=== PATIENT | female | born 1980 | race Hispanic/Latino ===

== ENCOUNTER 2018-04-05 11:20 | Inpatient (IN) | payer SELFPAY ==
[2018-04-05] MEDS ORDERED: Sodium Chloride 0.9% 1,000 ML IV ONE (12:08)
[2018-04-05 13:14] LABS: BASO % 0.4 % (0.0-2.0); LYMPH # 0.8 K/uL (1.0-4.3); LYMPH % 7.1 % (20.0-40.0); MEAN CELL VOLUME 80.6 fL (81.0-99.0); MEAN CORPUSCULAR HEMOGLOBIN 26.5 pg (27.0-31.0); MEAN CORPUSCULAR HGB CONC 32.9 g/dL (33.0-37.0); MEAN PLATELET VOLUME 9.1 fL (7.2-11.7); MONO # 0.8 K/uL (0.0-0.8); MONO % 7.2 % (0.0-10.0); NEUT % 85.3 % (50.0-75.0); NRBC % 0.1 % (0.0-2.0); PLATELET COUNT 221 K/uL (130-400); RBC 4.89 Mil/uL (3.80-5.20); RED CELL DISTRIBUTION WIDTH 18.5 % (11.5-14.5); WHITE BLOOD COUNT 11.7 K/uL (4.8-10.8)
[2018-04-05 13:20] LABS: HCG,QUALITATIVE URINE NEGATIVE (NEGATIVE)
[2018-04-05 13:23] LABS: SQUAMOUS EPITHIAL 12 /hpf (0-5); URINE BILIRUBIN NEGATIVE (NEGATIVE); URINE BLOOD NEGATIVE (NEGATIVE); URINE CALCIUM OXALATE CRYSTALS OCC /hpf (<OCC); URINE CLARITY Hazy (Clear); URINE COLOR Yellow (YELLOW); URINE GLUCOSE (UA) NORMAL (Normal); URINE HYALINE CAST 0-2 /lpf (0-2); URINE LEUKOCYTE ESTERASE NEG Leu/uL (Negative); URINE PROTEIN NEGATIVE (NEGATIVE); URINE UROBILINOGEN NORMAL mg/dL (0.2-1.0)
[2018-04-05 13:28] LABS: BLOOD UREA NITROGEN 19 mg/dL (7-17); CALCIUM 9.3 mg/dl (8.6-10.4); GFR AFRICAN-AMERICAN > 60; GFR NON-AFRICAN AMERICAN > 60
[2018-04-05 13:38] LABS: BANDS 2 % (0-2); LYMPHOCYTE 5 % (20-40); MONOCYTE 4 % (0-10); NEUTROPHIL 88 % (50-75); PLATELET ESTIMATE NORMAL (NORMAL); REACTIVE LYMPHOCYTES 1 % (0-0); TOTAL CELLS COUNTED 100
[2018-04-05 13:39] LABS: ANISOCYTOSIS SLIGHT
--- NOTE | 2018-04-05 13:58 | RAD ---
PROCEDURE: Right Hip Radiographs. HISTORY: pain COMPARISON: None. FINDINGS: BONES: No acute fracture. JOINTS: Normal. SOFT TISSUES: Normal. OTHER FINDINGS: Nonspecific metallic densities seen overlying the pelvis. IMPRESSION: No demonstrated fracture or dislocation. Nonspecific metallic densities seen overlying the pelvis may be external to the patient. Correlate clinically.
--- NOTE | 2018-04-05 13:59 | RAD ---
PROCEDURE: Left Knee Radiographs. HISTORY: Pain. COMPARISON: None. FINDINGS: BONES: No acute fracture. JOINTS: Unremarkable. JOINT EFFUSION: Large joint effusion. OTHER FINDINGS: None. IMPRESSION: Large suprapatellar joint effusion without demonstrated fracture or dislocation.
[2018-04-05] MEDS ORDERED: Lidocaine 2% Inj (20ml) INFIL ONE (14:43)
[2018-04-05] MEDS ORDERED: Lidocaine 2% MPF (5 ml) Inj ONE ×2 (14:53→15:44)
--- NOTE | 2018-04-05 16:00 | C.PDOC ---
History Of Present Illness <Mallory Andrade - Last Filed: 04/05/18 16:09> <Geraldine Mayers - Last Filed: 04/06/18 17:38> 37 yo female w/o significant PMHx come in for evaluation of gradual onset of Right lower back pain radiating down to Right leg associated with tingling sensation for past 3 days. Pt sts, since yesterday developed Left knee pain, swelling, unable to ambulate due to Left knee pain, (+) fever last night 101C. Otherwise, pt denies known trauma or injury, travel or insect bite, rash, headache, dizziness, myalgia, sore throat, cough, CP, SOB, dyspnea, wheezing, abd. pain, N/V, UTi sx, hematuria, saddle anesthesia, incontinence, denies weakness to B/ lEs. Ambulate to ED, appears in pain. (Geraldine Mayers) <Mallory Andrade - Last Filed: 04/05/18 16:09> History Per: Patient <Geraldine Mayers - Last Filed: 04/06/18 17:38> Time Seen by Provider: 04/05/18 11:44 Chief Complaint (Nursing): Lower Extremity Problem/Injury Past Medical History - Social History Hx Alcohol Use: No Hx Substance Use: No <Mallory Andrade - Last Filed: 04/05/18 16:09> Reviewed: Historical Data, Nursing Documentation, Vital Signs - Medical History PMH: No Chronic Diseases Surgical History: No Surg Hx Family History: States: No Known Family Hx - Social History Hx Tobacco Use: No - Immunization History Hx Tetanus Toxoid Vaccination: No Hx Influenza Vaccination: No Hx Pneumococcal Vaccination: No <Geraldine Mayers - Last Filed: 04/06/18 17:38> Vital Signs: Last Vital Signs Temp 97.6 F 04/06/18 15:45 Pulse 63 04/06/18 15:45 Resp 13 04/06/18 15:45 BP 111/69 04/06/18 15:45 Pulse Ox 100 04/06/18 15:45 Review Of Systems Except As Marked, All Systems Reviewed And Found Negative. Constitutional: Positive for: Fever, Chills. Negative for: Malaise ENT: Negative for: Throat Pain Cardiovascular: Negative for: Chest Pain, Palpitations, Edema, Light Headedness Respiratory: Negative for: Cough, Shortness of Breath, Wheezing Gastrointestinal: Negative for: Nausea, Vomiting, Abdominal Pain, Diarrhea Genitourinary: Negative for: Dysuria, Incontinence Musculoskeletal: Positive for: Back Pain, Other (Left knee pain, swelling). Negative for: Neck Pain Neurological: Negative for: Weakness, Altered Mental Status, Headache, Dizziness <Geraldine Mayers - Last Filed: 04/06/18 17:38> Physical Exam - Physical Exam Appears: Well, Non-toxic, No Acute Distress Skin: Normal Color, Warm, Dry, No Pale, No Rash Head: Normacephalic Eye(s): bilateral: PERRL Nose: No Flaring, No Discharge Oral Mucosa: Moist, No Drooling Throat: No Erythema, No Drooling Neck: Normal ROM, Trachea Midline, Supple Cardiovascular: Rhythm Regular Respiratory: No Decreased Breath Sounds, No Accessory Muscle Use, No Stridor, No Wheezing Gastrointestinal/Abdominal: Soft, No Tenderness, No Distention, No Guarding Back: No CVA Tenderness, No Vertebral Tenderness, No Muscle Spasm, Paraspinal Tenderness (Right sided lumbar) Extremity: Normal ROM (mod discomfort to FAROM to left knee due to pain), Tenderness (diffuse anterior aspect Left knee), No Calf Tenderness, Capillary Refill (less than 2sec to B/L LEs.), No Deformity, Swelling (Left knee lateral superior effusion) Neurological/Psych: Oriented x3, Normal Speech, Normal Motor, Normal Sensation, Normal Reflexes <Geraldine Mayers - Last Filed: 04/06/18 17:38> ED Course And Treatment - Laboratory Results Result Diagrams: 04/05/18 13:10 04/05/18 13:10 O2 Sat by Pulse Oximetry: 99 <Mallory Andrade - Last Filed: 04/05/18 16:09> - Laboratory Results Result Diagrams: 04/06/18 07:49 04/06/18 07:49 Urine POC: Negative Pulse Ox Interpretation: Normal - Other Rad pelvis w/Right hip X-Ray: Interpreted by Me, Viewed By Me Interpretation: (-) acute fx or dislocation, no osteo Left knee X-Ray: Interpreted by Me, Viewed By Me Interpretation: (+) small effusion, no acute fx or dislocation Progress Note: Pt was OBS in ED for 5 hour and remained significant unchanged. During the ED evaluation, pt was unable to ambulate due to Left knee. Blood work review, mild leukocytosis with left shift. Synovial fluid sent to lab after arthrocentesis of Left knee performed, (+) WBC, RBC. Suspicion for septic left knee. Case discussed with , [id number] and admission arranged to medicine. notified about admission. Pt remained stable during the Ed evaluation, afebrile, hemodynamicalys table. Zosyn given empirically. <Geraldine Mayers - Last Filed: 04/06/18 17:38> Disposition <Mallory Andrdae - Last Filed: 04/05/18 16:09> - Disposition Disposition Time: 16:43 <Geraldine Mayers - Last Filed: 04/06/18 17:38> - Disposition Disposition: HOSPITALIZED Condition: STABLE - Clinical Impression Clinical Impression: Septic arthritis Procedure: Fluid Aspiration - Time Performed Time Performed: 15:30 - Time Out Time Out: Side verified, Site verified, Patient ID confirmed, Sterile procedures obs. - Procedure Procedure: Arthrocentesis - Consent Obtained Consent obtained: Written - Performed By Performed by: Attending Physician - Indications Indication(s): Therapeutic, Diagnostic, Joint effusion, Suspected septic joint - Contraindications Contraindications: None - Location Location: Left, Knee (medial/superior aspect of patella) - Anesthetic Technique Anesthetic Technique: Topical Anesthetic: Lidocaine 1% (APPROX 10ML), Other (approx 5ml lidocaine also injected intraarticularly for pain relief.) Procedure: Usual prep and drape, Needle gauge (18) - Appearance Appearance: Purulent - Drained Drained ml: 20ML - Post-procedure Post-procedure: No fluid leak - Complications Complications: None - Patient tolerated procedure Patient tolerated procedure: Well <Mallory Andrade - Last Filed: 04/05/18 16:09>
[2018-04-05] MEDS ORDERED: Piperacillin/Tazobact 3.375 GM in Sodium Chloride 100 ML IVPB STA (17:30)
[2018-04-05 17:42] LABS: FLUID TYPE SYNOVIAL FLUID; SF GROSS APPEARANCE CLOUDY (CLEAR)
[2018-04-05] MEDS ORDERED: Piperacillin/Tazobact 3.375 gm 100 ML IVPB ONE (17:48)
[2018-04-05 18:37] LABS: LYME IGG NEGATIVE (NEGATIVE)
[2018-04-05 18:46] LABS: SYNOVIAL FLUID MONO/MACROPHAGE 8 % (0-0)
[2018-04-05 18:54] LABS: INR 1.1
[2018-04-05] MEDS ORDERED: Vancomycin 1 gm/NS 200 ml 1 GM/200 ML BAG IVPB ONE (19:00)
[2018-04-05 19:28] LABS: LYME IGM NEGATIVE (NEGATIVE)
--- NOTE | 2018-04-05 20:43 | CP.PCM.HP ---
<Yani Kendall - Last Filed: 04/05/18 21:54> History of Present Illness - History of Present Illness History of Present Illness: HPI: Patient is a 37 year Gabonese speaking female with no past medical history who presents to the ED with complaints of left knee pain and swelling. The patient says [place] the beach Tuesday and shortly after, started to right hip , thigh and knee numbness, as well as lower right back pain on Tuesday. The numbness improved and then she developed left knee pain and swelling. She took ibuprofen and used voltaren gel on her knee which improved her symptoms. She says that without ibuprofen and voltaren gel, she was not able to walk due to the swelling and pain. On Tuesday at 3am, the right hip and thigh numbness returned more intense than before, which is what brought her to the ER. She states she had fevers, weakness, dizziness, nausea, and lower right back pain on Tuesday; these symptoms have since resolved. She currently complains of left knee pain and swelling. The patient denies a history of trauma, STIs, and drug use. Patient currently denies chest pain, palpitations, shortness of breath, nausea, vomiting, fevers, dysuria, diarrhea/constipation, headaches, dizziness, numbness, and tingling. PMD: none PMHx: denies SurgHx: Breast augmentation 2017 FamHx: denies SocHx: denies tobacco and drug use; social red wine drinker; lives in [place]; recently moved here from [facility] Allergies: NKDA Medications: none Present on Admission - Present on Admission Any Indicators Present on Admission: No Review of Systems - Constitutional Constitutional: Fever, Weakness. absent: Headache - EENT Eyes: absent: Change in Vision Ears: Dizziness - Cardiovascular Cardiovascular: Leg Edema. absent: Chest Pain, Dyspnea, Palpitations, Rapid Heart Rate - Respiratory Respiratory: absent: Cough, Dyspnea - Gastrointestinal Gastrointestinal: Nausea. absent: Abdominal Pain, Constipation, Diarrhea, Vomiting - Genitourinary Genitourinary: absent: Change in Urinary Stream, Dysuria, Hematuria - Musculoskeletal Musculoskeletal: Arthralgias (left knee), Back Pain (Lower right back), Joint Swelling (left knee), Numbness (right hip and thigh) - Integumentary Integumentary: absent: Rash, Sores - Neurological Neurological: Abnormal Gait (painful gait due to swollen/painful left knee), Dizziness, Numbness (right hip and thigh), Headaches - Endocrine Endocrine: absent: Fatigue, Palpitations - Hematologic/Lymphatic Hematologic: absent: Easy Bleeding, Easy Bruising Past Patient History - Past Social History Smoking Status: Never Smoked - PSYCHIATRIC Hx Substance Use: No - SURGICAL HISTORY Hx Surgeries: Yes Other/Comment: BREAST AUGMENTATION Meds Allergies/Adverse Reactions: Allergies Allergy/AdvReac Type Severity Reaction Status Date / Time No Known Allergies Allergy Verified 04/05/18 11:36 Physical Exam - Constitutional Appears: No Acute Distress - Head Exam Head Exam: ATRAUMATIC, NORMAL INSPECTION, NORMOCEPHALIC - Eye Exam Eye Exam: EOMI, Normal appearance - ENT Exam ENT Exam: Mucous Membranes Moist - Respiratory Exam Respiratory Exam: Clear to Auscultation Bilateral, NORMAL BREATHING PATTERN. absent: Rales, Rhonchi, Wheezes, Respiratory Distress - Cardiovascular Exam Cardiovascular Exam: REGULAR RHYTHM, +S1, +S2 - GI/Abdominal Exam GI & Abdominal Exam: Normal Bowel Sounds, Soft. absent: Distended, Firm, Guarding, Tenderness - Extremities Exam Extremities exam: Positive for: joint swelling (left knee), pedal pulses present. Negative for: full ROM (decreased ROM of left knee due to swelling and pain; full ROM of right LE) Additional comments: LLE: non erythematous left knee, no lacerations/abrasions noted; + swelling noted, warm to touch (equal temperatures bilaterally), decreased ROM due to swelling/pain; Bandaid placed s/p joint aspiration - Back Exam Back exam: NORMAL INSPECTION. absent: rash noted, tenderness - Neurological Exam Neurological exam: Alert, CN II-XII Intact, Oriented x3 - Psychiatric Exam Psychiatric exam: Normal Affect, Normal Mood - Skin Skin Exam: Dry, Normal Color, Warm Additional comments: several blisters/abrasions noted on both feet due to shoes. Results - Vital Signs Recent Vital Signs: Last Vital Signs Temp 98.8 F 04/05/18 19:30 Pulse 60 04/05/18 19:30 Resp 20 04/05/18 19:30 BP 99/61 L 04/05/18 19:30 Pulse Ox 100 04/05/18 19:30 - Labs Result Diagrams: 04/05/18 13:10 07/04/18 13:10 Labs: Laboratory Results - last 24 hr 04/05/18 04/05/18 04/05/18 13:10 13:10 13:10 WBC 11.7 H RBC 4.89 Hgb 13.0 Hct 39.4 MCV 80.6 L MCH 26.5 L MCHC 32.9 L RDW 18.5 H Plt Count 221 MPV 9.1 Neut % (Auto) 85.3 H Lymph % (Auto) 7.1 L Robeson % (Auto) 7.2 Eos % (Auto) 0.0 Baso % (Auto) 0.4 Neut # (Auto) 10.0 H Lymph # (Auto) 0.8 L Robeson # (Auto) 0.8 Eos # (Auto) 0.0 Baso # (Auto) 0.0 Neutrophils % (Manual) 88 H Band Neutrophils % 2 Lymphocytes % (Manual) 5 L Reactive Lymphs % 1 H Monocytes % (Manual) 4 Platelet Estimate Normal Anisocytosis (manual) Slight ESR 33 H PT INR APTT Sodium 142 Potassium 3.5 L Chloride 100 Carbon Dioxide 30 Anion Gap 16 BUN 19 H Creatinine 1.0 Est GFR ( Amer) > 60 Est GFR (Non-Af Amer) > 60 Random Glucose 107 H Calcium 9.3 Urine Color Yellow Urine Clarity Hazy Urine pH 5.0 Ur Specific [place] 1.025 Urine Protein Negative Urine Glucose (UA) Normal Urine Ketones Negative Urine Blood Negative Urine Nitrate Negative Urine Bilirubin Negative Urine Urobilinogen Normal Ur Leukocyte Esterase Neg Urine WBC (Auto) 2 Urine RBC (Auto) < 1 Ur Squamous Epith Cells 12 H Calcium Oxalate Crystal Occ H Hyaline Casts 0-2 Urine HCG, Qual Negative Fluid Type Synovial WBC Synovial RBC Synovial Neutrophils Synovial Lymphocytes Synov Monos/Macrophage Synovial Fluid Comment Lyme Disease IgG Ab (IFA) Lyme Disease IgM Ab Infectious Robeson Assay 04/05/18 04/05/18 04/05/18 13:10 17:41 18:39 WBC RBC Hgb Hct MCV MCH MCHC RDW Plt Count MPV Neut % (Auto) Lymph % (Auto) Robeson % (Auto) Eos % (Auto) Baso % (Auto) Neut # (Auto) Lymph # (Auto) Robeson # (Auto) Eos # (Auto) Baso # (Auto) Neutrophils % (Manual) Band Neutrophils % Lymphocytes % (Manual) Reactive Lymphs % Monocytes % (Manual) Platelet Estimate Anisocytosis (manual) ESR PT 12.0 INR 1.1 APTT 28 Sodium Potassium Chloride Carbon Dioxide Anion Gap BUN Creatinine Est GFR ( Amer) Est GFR (Non-Af Amer) Random Glucose Calcium Urine Color Urine Clarity Urine pH Ur Specific [place] Urine Protein Urine Glucose (UA) Urine Ketones Urine Blood Urine Nitrate Urine Bilirubin Urine Urobilinogen Ur Leukocyte Esterase Urine WBC (Auto) Urine RBC (Auto) Ur Squamous Epith Cells Calcium Oxalate Crystal Hyaline Casts Urine HCG, Qual Fluid Type Synovial fluid Synovial WBC 67386.0 H Synovial RBC 9844.0 H Synovial Neutrophils 89.0 H Synovial Lymphocytes 3.0 H Synov Monos/Macrophage 8 H Synovial Fluid Comment TEST NOT PERFORMED Lyme Disease IgG Ab (IFA) Lyme Disease IgM Ab Infectious Robeson Assay Negative 04/05/18 Unknown WBC RBC Hgb Hct MCV MCH MCHC RDW Plt Count MPV Neut % (Auto) Lymph % (Auto) Robeson % (Auto) Eos % (Auto) Baso % (Auto) Neut # (Auto) Lymph # (Auto) Robeson # (Auto) Eos # (Auto) Baso # (Auto) Neutrophils % (Manual) Band Neutrophils % Lymphocytes % (Manual) Reactive Lymphs % Monocytes % (Manual) Platelet Estimate Anisocytosis (manual) ESR PT INR APTT Sodium Potassium Chloride Carbon Dioxide Anion Gap BUN Creatinine Est GFR ( Amer) Est GFR (Non-Af Amer) Random Glucose Calcium Urine Color Urine Clarity Urine pH Ur Specific [place] Urine Protein Urine Glucose (UA) Urine Ketones Urine Blood Urine Nitrate Urine Bilirubin Urine Urobilinogen Ur Leukocyte Esterase Urine WBC (Auto) Urine RBC (Auto) Ur Squamous Epith Cells Calcium Oxalate Crystal Hyaline Casts Urine HCG, Qual Fluid Type Synovial WBC Synovial RBC Synovial Neutrophils Synovial Lymphocytes Synov Monos/Macrophage Synovial Fluid Comment Lyme Disease IgG Ab (IFA) Negative Lyme Disease IgM Ab Negative Infectious Robeson Assay Assessment & Plan (1) Septic arthritis Assessment and Plan: Afebrile, + leukocytosis 11.7, + bandemia 2 Left Knee xray: large suprapatellar joint effusion w/o demonstrated fracture or dislocation Hip/pelvis xray: no demonstrated fracture or dislocation. nonspecific metallic densities seen overlying the pelvis may be external to the patient. correlate clinically Left knee synovial fluid: * WBC 66135X * RBC 9844 H * Neutrophils 89H * Lymphocytes 3H * Robeson/macrophage 8H * Gram stain: many polymorphonuclear WBCs, no organisms seen ESR: 33H Lyme IgG Ab, IgM Ab- negative Infectious mono assay- negative Chlamydia/GC: f/u Blood cx: f/u Urine Cx: f/u Orthopedic surgery consulted, Dr. Velasquez. Help appreciated Medications: * Zosyn 3.375g IV Q6h * Vanco 1gm IV Q24h * NS@100mls/hr * Tylenol 650mg PO Q6h prn for fever/pain Status: Acute (2) Prophylactic measure Assessment and Plan: DVT: no SCDs due to LE infection/swelling; no chemical anticoagulation-preop? GI: no indicated NPO for possible operation, will follow up orthopedic's recommendations. Status: Acute <Manuel Hendricks - Last Filed: 04/06/18 06:21> Results - Vital Signs Recent Vital Signs: Last Vital Signs Temp 98.1 F 04/06/18 00:00 Pulse 69 04/06/18 00:00 Resp 20 04/06/18 00:00 BP 90/58 L 04/06/18 00:00 Pulse Ox 97 04/06/18 00:00 - Labs Result Diagrams: 04/05/18 13:10 04/05/18 13:10 Labs: Laboratory Results - last 24 hr 04/05/18 04/05/18 04/05/18 13:10 13:10 13:10 WBC 11.7 H RBC 4.89 Hgb 13.0 Hct 39.4 MCV 80.6 L MCH 26.5 L MCHC 32.9 L RDW 18.5 H Plt Count 221 MPV 9.1 Neut % (Auto) 85.3 H Lymph % (Auto) 7.1 L Robeson % (Auto) 7.2 Eos % (Auto) 0.0 Baso % (Auto) 0.4 Neut # (Auto) 10.0 H Lymph # (Auto) 0.8 L Robeson # (Auto) 0.8 Eos # (Auto) 0.0 Baso # (Auto) 0.0 Neutrophils % (Manual) 88 H Band Neutrophils % 2 Lymphocytes % (Manual) 5 L Reactive Lymphs % 1 H Monocytes % (Manual) 4 Platelet Estimate Normal Anisocytosis (manual) Slight ESR 33 H PT INR APTT Sodium 142 Potassium 3.5 L Chloride 100 Carbon Dioxide 30 Anion Gap 16 BUN 19 H Creatinine 1.0 Est GFR ( Amer) > 60 Est GFR (Non-Af Amer) > 60 Random Glucose 107 H Calcium 9.3 Urine Color Yellow Urine Clarity Hazy Urine pH 5.0 Ur Specific [place] 1.025 Urine Protein Negative Urine Glucose (UA) Normal Urine Ketones Negative Urine Blood Negative Urine Nitrate Negative Urine Bilirubin Negative Urine Urobilinogen Normal Ur Leukocyte Esterase Neg Urine WBC (Auto) 2 Urine RBC (Auto) < 1 Ur Squamous Epith Cells 12 H Calcium Oxalate Crystal Occ H Hyaline Casts 0-2 Urine HCG, Qual Negative Fluid Type Synovial WBC Synovial RBC Synovial Neutrophils Synovial Lymphocytes Synov Monos/Macrophage Synovial Fluid Comment Lyme Disease IgG Ab (IFA) Lyme Disease IgM Ab Infectious Robeson Assay 04/05/18 04/05/18 04/05/18 13:10 17:41 18:39 WBC RBC Hgb Hct MCV MCH MCHC RDW Plt Count MPV Neut % (Auto) Lymph % (Auto) Robeson % (Auto) Eos % (Auto) Baso % (Auto) Neut # (Auto) Lymph # (Auto) Robeson # (Auto) Eos # (Auto) Baso # (Auto) Neutrophils % (Manual) Band Neutrophils % Lymphocytes % (Manual) Reactive Lymphs % Monocytes % (Manual) Platelet Estimate Anisocytosis (manual) ESR PT 12.0 INR 1.1 APTT 28 Sodium Potassium Chloride Carbon Dioxide Anion Gap BUN Creatinine Est GFR ( Amer) Est GFR (Non-Af Amer) Random Glucose Calcium Urine Color Urine Clarity Urine pH Ur Specific [place] Urine Protein Urine Glucose (UA) Urine Ketones Urine Blood Urine Nitrate Urine Bilirubin Urine Urobilinogen Ur Leukocyte Esterase Urine WBC (Auto) Urine RBC (Auto) Ur Squamous Epith Cells Calcium Oxalate Crystal Hyaline Casts Urine HCG, Qual Fluid Type Synovial fluid Synovial WBC 69785.0 H Synovial RBC 9844.0 H Synovial Neutrophils 89.0 H Synovial Lymphocytes 3.0 H Synov Monos/Macrophage 8 H Synovial Fluid Comment TEST NOT PERFORMED Lyme Disease IgG Ab (IFA) Lyme Disease IgM Ab Infectious Robeson Assay Negative 04/05/18 Unknown WBC RBC Hgb Hct MCV MCH MCHC RDW Plt Count MPV Neut % (Auto) Lymph % (Auto) Robeson % (Auto) Eos % (Auto) Baso % (Auto) Neut # (Auto) Lymph # (Auto) Robeson # (Auto) Eos # (Auto) Baso # (Auto) Neutrophils % (Manual) Band Neutrophils % Lymphocytes % (Manual) Reactive Lymphs % Monocytes % (Manual) Platelet Estimate Anisocytosis (manual) ESR PT INR APTT Sodium Potassium Chloride Carbon Dioxide Anion Gap BUN Creatinine Est GFR ( Amer) Est GFR (Non-Af Amer) Random Glucose Calcium Urine Color Urine Clarity Urine pH Ur Specific [place] Urine Protein Urine Glucose (UA) Urine Ketones Urine Blood Urine Nitrate Urine Bilirubin Urine Urobilinogen Ur Leukocyte Esterase Urine WBC (Auto) Urine RBC (Auto) Ur Squamous Epith Cells Calcium Oxalate Crystal Hyaline Casts Urine HCG, Qual Fluid Type Synovial WBC Synovial RBC Synovial Neutrophils Synovial Lymphocytes Synov Monos/Macrophage Synovial Fluid Comment Lyme Disease IgG Ab (IFA) Negative Lyme Disease IgM Ab Negative Infectious Robeson Assay Assessment & Plan - Date & Time Date: 04/06/18 (I have seen and examined the patient. I agree with the findings and plan of care as documented by Dr. Kendall. Patient with septic arthritis of left knee. Geovani and Jake for now. Consult to Ortho. Monitor for acute changes.) Time: 06:19 Attending/Attestation - Attestation I have personally seen and examined this patient.: Yes I have fully participated in the care of the patient.: Yes I have reviewed all pertinent clinical information: Yes
[2018-04-05] MEDS: Sodium Chloride 0.9% 1,000 ML IV SCH (21:35)
[2018-04-05] MEDS: Piperacill/Tazo 3.375gm in Dex 3.375 GM/50 ML BAG IVPB SCH (21:37)
[2018-04-05] MEDS: Vancomycin 1 gm/NS 200 ml 1 GM/200 ML BAG IVPB SCH (21:41)
[2018-04-06] MEDS: Piperacill/Tazo 3.375gm in Dex 3.375 GM/50 ML BAG IVPB SCH ×4 (03:05→21:14)
[2018-04-06] MEDS ORDERED: Sodium Chloride 0.9% 1,000 ML IV ONE (07:14)
--- NOTE | 2018-04-06 07:42 | CP.PCM.PN ---
<Marline Hannon P - Last Filed: 04/07/18 02:11> Subjective - Date & Time of Evaluation Date of Evaluation: 04/06/18 Time of Evaluation: 07:42 - Subjective Subjective: PGY-[address] Sky. Pt seen and evaluated at bedside. Pt NPO, to go to OR today. pre-op CXR- no acute disease. EKG: NSR at 62, slight R axis deviation. Detsky score class 1. Complaining of continued 6/10 pain to L knee. Denies fever, chills, chest pain, shortness of breath, abdominal pain, nausea,vomiting Objective - Vital Signs/Intake and Output Vital Signs (last 24 hours): Temp Pulse Resp BP Pulse Ox 98.1 F 69 20 90/58 L 97 04/06/18 00:00 04/06/18 00:00 04/06/18 00:00 04/06/18 00:00 04/06/18 00:00 Intake and Output: 04/06/18 04/06/18 06:59 18:59 Intake Total 700 Balance 700 - Medications Medications: Current Medications Acetaminophen (Tylenol 325mg Tab) 650 mg PO Q6 PRN PRN Reason: Fever >100.4 F Sodium Chloride (Sodium Chloride 0.9%) 1,000 mls @ 100 mls/hr IV .Q10H [facility] Last Admin: 04/05/18 21:35 Dose: 100 mls/hr Piperacillin Sod/Tazobactam Sod (Zosyn 3.375 Gm Iv Premix) 3.375 gm in 50 mls @ 100 mls/hr IVPB Q6H [facility] PRN Reason: Protocol Last Admin: 04/06/18 03:05 Dose: 100 mls/hr Vancomycin/Sodium Chloride (Vancomycin 1 Gm/Ns 200 Ml) 1 gm in 200 mls @ 133.333 mls/hr IVPB Q24H [facility] PRN Reason: Protocol Stop: 04/10/18 22:01 Last Admin: 04/05/18 21:41 Dose: Not Given Sodium Chloride (Sodium Chloride 0.9%) 1,000 mls @ 1,000 mls/hr IV .Q1H ONE Stop: 04/06/18 08:13 - Labs Labs: 04/05/18 13:10 04/05/18 13:10 PT 12.0 SECONDS (9.7-12.2) 04/05/18 18:39 INR 1.1 04/05/18 18:39 APTT 28 SECONDS (21-34) 04/05/18 18:39 - Constitutional Appears: No Acute Distress - Head Exam Head Exam: ATRAUMATIC, NORMOCEPHALIC - Eye Exam Eye Exam: EOMI - ENT Exam ENT Exam: Mucous Membranes Moist - Respiratory Exam Respiratory Exam: Clear to Ausculation Bilateral. absent: Rales, Rhonchi, Wheezes - Cardiovascular Exam Cardiovascular Exam: REGULAR RHYTHM, +S1, +S2 - GI/Abdominal Exam GI & Abdominal Exam: Soft, Normal Bowel Sounds. absent: Tenderness - Extremities Exam Additional comments: Moderate L knee effusion. Tender to palpation generalized knee joint. No obvious signs of trauma. - Neurological Exam Neurological Exam: Alert, Awake, Oriented x3 - Psychiatric Exam Psychiatric exam: Normal Mood - Skin Skin Exam: Dry, Intact, Warm Assessment and Plan - Assessment and Plan (Free Text) Plan: 37 yo F with no PMHx presents with L knee pain and swelling. Assessment & Plan (1) Arthritis- septic vs. inflammatory Assessment and Plan: Afebrile, + leukocytosis 11.7, + bandemia 2 Left Knee xray: large suprapatellar joint effusion w/o demonstrated fracture or dislocation Hip/pelvis xray: no demonstrated fracture or dislocation. nonspecific metallic densities seen overlying the pelvis may be external to the patient. correlate clinically Left knee synovial fluid: * WBC 68942P * RBC 9844 H * Neutrophils 89H * Lymphocytes 3H * Lajas/macrophage 8H * Gram stain: many polymorphonuclear WBCs, no organisms seen ESR: 33H Lyme IgG Ab, IgM Ab- negative Infectious mono assay- negative Chlamydia/GC: f/u Blood cx: No growth 24hours, preliminary Urine Cx: multiple species, possible contamination Wound cx: f/u Orthopedic surgery consulted, Dr. Velasquez. Help appreciated -Took pt to OR for arthroscopic I&D -managing pain: Ketorolac 30mg IVP Q6H, hydromorphone0.5 mg IVP Q4H PRN severe pain; oxycodone/acetaminophen 5/325 1 tab PO PRN moderate pain Medications: * Zosyn 3.375g IV Q6h * Vanco 1gm IV Q24h * NS@100mls/hr * Tylenol 650mg PO Q6h prn for fever/pain Status: Acute (2) Hypokalemia Kdur 40mg PO once F/u K+ (3) Hep C reactive Pt education (4) Prophylactic measure Assessment and Plan: DVT: no SCDs due to LE infection/swelling; no chemical anticoagulation-preop GI: no indicated Status: Acute <Latisha Sky V - Last Filed: 04/08/18 22:29> Objective - Vital Signs/Intake and Output Vital Signs (last 24 hours): Temp Pulse Resp BP Pulse Ox 98.4 F 66 20 113/74 100 04/08/18 16:11 04/08/18 16:11 04/08/18 16:11 04/08/18 16:11 04/08/18 16:11 Intake and Output: 04/08/18 04/09/18 18:59 06:59 Intake Total 1000 Balance 1000 - Medications Medications: Current Medications Acetaminophen (Tylenol 325mg Tab) 650 mg PO Q6 PRN PRN Reason: Fever >100.4 F Docusate Sodium (Colace) 100 mg PO BID [facility] Last Admin: 04/08/18 17:22 Dose: 100 mg Hydromorphone HCl (Dilaudid) 0.5 mg IVP Q4H PRN PRN Reason: Pain, severe (8-10) Piperacillin Sod/Tazobactam Sod (Zosyn 3.375 Gm Iv Premix) 3.375 gm in 50 mls @ 100 mls/hr IVPB Q6H [facility] PRN Reason: Protocol Last Admin: 04/08/18 20:57 Dose: 100 mls/hr Vancomycin/Sodium Chloride (Vancomycin 1 Gm/Ns 200 Ml) 1 gm in 200 mls @ 133.333 mls/hr IVPB Q24H [facility] PRN Reason: Protocol Stop: 04/10/18 22:01 Last Admin: 04/08/18 22:10 Dose: 133.333 mls/hr Oxycodone/Acetaminophen (Percocet 5/325 Mg Tab) 1 tab PO Q4 PRN PRN Reason: Pain, moderate (4-7) Stop: 04/09/18 13:46 Last Admin: 04/08/18 20:55 Dose: 1 tab - Labs Labs: 04/08/18 06:26 04/08/18 06:26 PT 12.0 SECONDS (9.7-12.2) 04/05/18 18:39 INR 1.1 04/05/18 18:39 APTT 28 SECONDS (21-34) 04/05/18 18:39 Attending/Attestation - Attestation I have personally seen and examined this patient.: Yes I have fully participated in the care of the patient.: Yes I have reviewed all pertinent clinical information, including history, physical exam and plan: Yes Notes (Text): This is late computer entry for 04/06/18. Patient seen prior to OR. Discussed with ortho PA, given that crystals are negative, orthopedic will take to the OR at 12:30PM today given septic arthritis is not ruled out given pain, effusion, fever, and white count. Patient re-evaluated post OR in the PACU. Patient has noted pain and required narcotic medication. (1) Septic arthritis Left Knee Pain Assessment and Plan: * Orthopedic surgery consulted, Dr. Velasquez. Help appreciated * Preoperative/intraoperative/post operative per orthopedic surgery * Anticoagulation per orthopedic surgery * pain management per orthopedic surgery * 04/06/18: Arthroscopic I&D of Left Knee * F/u intraoperative cultures from OR * Criteria: Afebrile, + leukocytosis 11.7, + bandemia 2 * Left Knee xray (04/05/18): large suprapatellar joint effusion w/o demonstrated fracture or dislocation * Hip/pelvis xray (04/05/18): no demonstrated fracture or dislocation. nonspecific metallic densities seen overlying the pelvis may be external to the patient. correlate clinically * Chest xray (04/06/18): no active disease * EKG: NSR * As per Detsky's criteria, patient considered low intraoperative cardiac risk for noncardic procedure. Surgery and anesthesia to discuss risks and benefits prior to procedure respectively. * Left knee synovial fluid: * WBC 32120X * RBC 9844 H * Neutrophils 89H * Lymphocytes 3H * Lajas/macrophage 8H * Gram stain: many polymorphonuclear WBCs, no organisms seen * ESR: 33H * Lyme IgG Ab, IgM Ab- negative * Infectious mono assay- negative * Chlamydia/GC (04/05/18): f/u * Blood cx (04/05/18): f/u * Urine Cx (04/05/18): f/u Medications: * Zosyn 3.375g IV Q6h (active since 04/05/18) * Vancomycin 1gm IV Q24h (active since 04/05/18) * NS@100mls/hr * Tylenol 650mg PO Q6h prn for fever/pain Status: Acute (2) Transaminitis Assessment and Plan: * Order for hepatitis panel * monitor LFTS (3) Prophylactic measure Assessment and Plan: * DVT: no SCDs due to LE infection/swelling; * no chemical anticoagulation prior to OR * GI: no indicated * NPO for possible operation
[2018-04-06] MEDS: Sodium Chloride 0.9% 1,000 ML IV SCH ×2 (07:45→17:44)
[2018-04-06 08:24] LABS: ALB/GLOB RATIO 1.3 (1.0-2.1); ALBUMIN 3.7 g/dL (3.5-5.0); ALT/SGPT 116 U/L (9-52); AST/SGOT 140 U/L (14-36); BLOOD UREA NITROGEN 11 mg/dL (7-17); CALCIUM 8.4 mg/dl (8.6-10.4); GFR AFRICAN-AMERICAN > 60; GFR NON-AFRICAN AMERICAN > 60
[2018-04-06 08:28] LABS: BASO % 0.2 % (0.0-2.0); EOS % 0.1 % (0.0-4.0); HEMOGLOBIN 11.8 g/dL (11.0-16.0); LYMPH # 0.8 K/uL (1.0-4.3); LYMPH % 8.6 % (20.0-40.0); MEAN CELL VOLUME 80.4 fL (81.0-99.0); MEAN CORPUSCULAR HEMOGLOBIN 26.8 pg (27.0-31.0); MEAN CORPUSCULAR HGB CONC 33.4 g/dL (33.0-37.0); MEAN PLATELET VOLUME 9.3 fL (7.2-11.7); MONO # 0.9 K/uL (0.0-0.8); MONO % 9.8 % (0.0-10.0); NEUT # 7.7 K/uL (1.8-7.0); NEUT % 81.3 % (50.0-75.0); NRBC % 0.1 % (0.0-2.0); PLATELET COUNT 200 K/uL (130-400); RED CELL DISTRIBUTION WIDTH 18.8 % (11.5-14.5); WHITE BLOOD COUNT 9.4 K/uL (4.8-10.8)
[2018-04-06 10:12] LABS: FLUID CRYSTALS NEGATIVE (NEGATIVE)
--- NOTE | 2018-04-06 10:22 | RAD ---
HISTORY: fever COMPARISON: No prior. FINDINGS: LUNGS: No active pulmonary disease. PLEURA: No significant pleural effusion identified, no pneumothorax apparent. CARDIOVASCULAR: Normal. OSSEOUS STRUCTURES: No significant abnormalities. VISUALIZED UPPER ABDOMEN: Normal. OTHER FINDINGS: None. IMPRESSION: No active disease.
--- NOTE | 2018-04-06 10:42 | CP.PCM.CON ---
History of Present Illness - History of Present Illness History of Present Illness: Orthopedic consultation Dr. Velasquez 37F complains of acute onset of left knee pain x1-2 days. She denies any trauma/ falls, any skin cuts/abrasions/bites, no recent illness prior to this. Had fever 101 at home, along with nausea and dizziness. She says she initially had pain in low back and tingling in right thigh, which resolved yesterday, then the left knee became swollen and painful and she was unable to walk due to the left knee pain. She denies any prior joint pain like this. SHe denies pain in other joints at this time. Denies history of gout or pain and swelling in other knee or great toes. No cough, neck pain, dysuria. Currently denies numbness/ tingling, CP/SOB/dizziness/n/v. Review of Systems - Review of Systems All systems: reviewed and no additional remarkable complaints except - Constitutional Constitutional: Fatigue, Fever - Cardiovascular Cardiovascular: As Per HPI - Respiratory Respiratory: As Per HPI - Gastrointestinal Gastrointestinal: Nausea - Genitourinary Additional comments: denies flank pain/dysuria - Musculoskeletal Musculoskeletal: As Per HPI - Integumentary Additional comments: no wound/sores - Neurological Neurological: As Per HPI - Hematologic/Lymphatic Hematologic: absent: As Per HPI, Easy Bleeding, Easy Bruising, Lymphadenopathy, Other Past Patient History - Past Medical History & Family History Past Medical History?: No Past Family History: Reviewed and not pertinent - Past Social History Smoking Status: Never Smoked - MUSCULOSKELETAL/RHEUMATOLOGICAL Hx Falls: No - PSYCHIATRIC Hx Substance Use: No - SURGICAL HISTORY Hx Surgeries: Yes Other/Comment: BREAST AUGMENTATION - ANESTHESIA Hx Anesthesia: Yes Hx Anesthesia Reactions: No Hx Malignant Hyperthermia: No Has any member of the family had a problem w/ anesthesia?: No Meds Allergies/Adverse Reactions: Allergies Allergy/AdvReac Type Severity Reaction Status Date / Time No Known Allergies Allergy Verified 04/05/18 11:36 - Medications Medications: Current Medications Acetaminophen (Tylenol 325mg Tab) 650 mg PO Q6 PRN PRN Reason: Fever >100.4 F Sodium Chloride (Sodium Chloride 0.9%) 1,000 mls @ 100 mls/hr IV .Q10H [facility] Last Admin: 04/06/18 07:45 Dose: Not Given Piperacillin Sod/Tazobactam Sod (Zosyn 3.375 Gm Iv Premix) 3.375 gm in 50 mls @ 100 mls/hr IVPB Q6H [facility] PRN Reason: Protocol Last Admin: 04/06/18 10:03 Dose: 100 mls/hr Vancomycin/Sodium Chloride (Vancomycin 1 Gm/Ns 200 Ml) 1 gm in 200 mls @ 133.333 mls/hr IVPB Q24H [facility] PRN Reason: Protocol Stop: 04/10/18 22:01 Last Admin: 04/05/18 21:41 Dose: Not Given Potassium Chloride (Potassium Chloride 20 Meq/100 Ml) 20 meq in 100 mls @ 50 mls/hr IVPB ONCE ONE Stop: 04/06/18 11:59 Last Admin: 04/06/18 10:03 Dose: 50 mls/hr Ketorolac Tromethamine (Toradol) 30 mg IVP Q6H [facility] Physical Exam - Constitutional Appears: Well, In Acute Distress - Head Exam Head Exam: ATRAUMATIC - Neck Exam Neck exam: Positive for: Full Rom, Normal Inspection - Respiratory Exam Respiratory Exam: NORMAL BREATHING PATTERN - Cardiovascular Exam Additional comments: +DP/PT pulses - Extremities Exam Additional comments: noted linear dry scabbed wounds to 1st dorsal webspace to B feet, one to left foot, right foot x3, noted 1cm scab to right heel - Expanded Lower Extremities Exam Left Knee exam: effusion (mild-mod), tenderness (AROM 10-75 with moderate pain, no joint laxity, skin intact outside of noted sites for aspiration, no erythema) Ankle exam: FULL ROM Neuro vacular tendon exam: no vascular compromise (sensation intact LLE) - Neurological Exam Neurological exam: Alert, Oriented x3 - Psychiatric Exam Psychiatric exam: Normal Affect, Normal Mood - Skin Skin Exam: Dry, Intact, Normal Color, Warm Additional comments: no erythema, mildly warm only Results - Vital Signs Recent Vital Signs: Last Vital Signs Temp 98.6 F 04/06/18 08:42 Pulse 58 L 04/06/18 08:42 Resp 20 04/06/18 08:42 BP 92/58 L 04/06/18 08:42 Pulse Ox 100 04/06/18 08:42 - Labs Result Diagrams: 04/06/18 07:49 04/06/18 07:49 Labs: Laboratory Results - last 24 hr 0704/05/18 04/05/18 13:10 13:10 13:10 WBC 11.7 H RBC 4.89 Hgb 13.0 Hct 39.4 MCV 80.6 L MCH 26.5 L MCHC 32.9 L RDW 18.5 H Plt Count 221 MPV 9.1 Neut % (Auto) 85.3 H Lymph % (Auto) 7.1 L Perry % (Auto) 7.2 Eos % (Auto) 0.0 Baso % (Auto) 0.4 Neut # (Auto) 10.0 H Lymph # (Auto) 0.8 L Perry # (Auto) 0.8 Eos # (Auto) 0.0 Baso # (Auto) 0.0 Neutrophils % (Manual) 88 H Band Neutrophils % 2 Lymphocytes % (Manual) 5 L Reactive Lymphs % 1 H Monocytes % (Manual) 4 Platelet Estimate Normal Anisocytosis (manual) Slight ESR 33 H PT INR APTT Sodium 142 Potassium 3.5 L Chloride 100 Carbon Dioxide 30 Anion Gap 16 BUN 19 H Creatinine 1.0 Est GFR ( Amer) > 60 Est GFR (Non-Af Amer) > 60 Random Glucose 107 H Calcium 9.3 Total Bilirubin AST ALT Alkaline Phosphatase Total Protein Albumin Globulin Albumin/Globulin Ratio Urine Color Yellow Urine Clarity Hazy Urine pH 5.0 Ur Specific Vina 1.025 Urine Protein Negative Urine Glucose (UA) Normal Urine Ketones Negative Urine Blood Negative Urine Nitrate Negative Urine Bilirubin Negative Urine Urobilinogen Normal Ur Leukocyte Esterase Neg Urine WBC (Auto) 2 Urine RBC (Auto) < 1 Ur Squamous Epith Cells 12 H Calcium Oxalate Crystal Occ H Hyaline Casts 0-2 Urine HCG, Qual Negative Fluid Type Fluid Crystals Synovial WBC Synovial RBC Synovial Neutrophils Synovial Lymphocytes Synov Monos/Macrophage Synovial Fluid Comment Lyme Disease IgG Ab (IFA) Lyme Disease IgM Ab Infectious Perry Assay 04/05/18 04/05/18 04/05/18 13:10 15:56 17:41 WBC RBC Hgb Hct MCV MCH MCHC RDW Plt Count MPV Neut % (Auto) Lymph % (Auto) Perry % (Auto) Eos % (Auto) Baso % (Auto) Neut # (Auto) Lymph # (Auto) Perry # (Auto) Eos # (Auto) Baso # (Auto) Neutrophils % (Manual) Band Neutrophils % Lymphocytes % (Manual) Reactive Lymphs % Monocytes % (Manual) Platelet Estimate Anisocytosis (manual) ESR PT INR APTT Sodium Potassium Chloride Carbon Dioxide Anion Gap BUN Creatinine Est GFR ( Amer) Est GFR (Non-Af Amer) Random Glucose Calcium Total Bilirubin AST ALT Alkaline Phosphatase Total Protein Albumin Globulin Albumin/Globulin Ratio Urine Color Urine Clarity Urine pH Ur Specific Vina Urine Protein Urine Glucose (UA) Urine Ketones Urine Blood Urine Nitrate Urine Bilirubin Urine Urobilinogen Ur Leukocyte Esterase Urine WBC (Auto) Urine RBC (Auto) Ur Squamous Epith Cells Calcium Oxalate Crystal Hyaline Casts Urine HCG, Qual Fluid Type Synovial fluid Fluid Crystals Negative Synovial WBC 39912.0 H Synovial RBC 9844.0 H Synovial Neutrophils 89.0 H Synovial Lymphocytes 3.0 H Synov Monos/Macrophage 8 H Synovial Fluid Comment TEST NOT PERFORMED Lyme Disease IgG Ab (IFA) Lyme Disease IgM Ab Infectious Perry Assay Negative 04/05/18 04/05/18 04/06/18 18:39 Unknown 07:49 WBC 9.4 RBC 4.40 Hgb 11.8 Hct 35.4 MCV 80.4 L MCH 26.8 L MCHC 33.4 RDW 18.8 H Plt Count 200 MPV 9.3 Neut % (Auto) 81.3 H Lymph % (Auto) 8.6 L Perry % (Auto) 9.8 Eos % (Auto) 0.1 Baso % (Auto) 0.2 Neut # (Auto) 7.7 H Lymph # (Auto) 0.8 L Perry # (Auto) 0.9 H Eos # (Auto) 0.0 Baso # (Auto) 0.0 Neutrophils % (Manual) Band Neutrophils % Lymphocytes % (Manual) Reactive Lymphs % Monocytes % (Manual) Platelet Estimate Anisocytosis (manual) ESR PT 12.0 INR 1.1 APTT 28 Sodium Potassium Chloride Carbon Dioxide Anion Gap BUN Creatinine Est GFR ( Amer) Est GFR (Non-Af Amer) Random Glucose Calcium Total Bilirubin AST ALT Alkaline Phosphatase Total Protein Albumin Globulin Albumin/Globulin Ratio Urine Color Urine Clarity Urine pH Ur Specific Vina Urine Protein Urine Glucose (UA) Urine Ketones Urine Blood Urine Nitrate Urine Bilirubin Urine Urobilinogen Ur Leukocyte Esterase Urine WBC (Auto) Urine RBC (Auto) Ur Squamous Epith Cells Calcium Oxalate Crystal Hyaline Casts Urine HCG, Qual Fluid Type Fluid Crystals Synovial WBC Synovial RBC Synovial Neutrophils Synovial Lymphocytes Synov Monos/Macrophage Synovial Fluid Comment Lyme Disease IgG Ab (IFA) Negative Lyme Disease IgM Ab Negative Infectious Perry Assay 04/06/18 07:49 WBC RBC Hgb Hct MCV MCH MCHC RDW Plt Count MPV Neut % (Auto) Lymph % (Auto) Perry % (Auto) Eos % (Auto) Baso % (Auto) Neut # (Auto) Lymph # (Auto) Perry # (Auto) Eos # (Auto) Baso # (Auto) Neutrophils % (Manual) Band Neutrophils % Lymphocytes % (Manual) Reactive Lymphs % Monocytes % (Manual) Platelet Estimate Anisocytosis (manual) ESR PT INR APTT Sodium 140 Potassium 3.2 L Chloride 101 Carbon Dioxide 28 Anion Gap 14 BUN 11 Creatinine 0.8 Est GFR ( Amer) > 60 Est GFR (Non-Af Amer) > 60 Random Glucose 110 H Calcium 8.4 L Total Bilirubin 0.8 AST 140 H ALT 116 H Alkaline Phosphatase 49 Total Protein 6.6 Albumin 3.7 Globulin 2.9 Albumin/Globulin Ratio 1.3 Urine Color Urine Clarity Urine pH Ur Specific Vina Urine Protein Urine Glucose (UA) Urine Ketones Urine Blood Urine Nitrate Urine Bilirubin Urine Urobilinogen Ur Leukocyte Esterase Urine WBC (Auto) Urine RBC (Auto) Ur Squamous Epith Cells Calcium Oxalate Crystal Hyaline Casts Urine HCG, Qual Fluid Type Fluid Crystals Synovial WBC Synovial RBC Synovial Neutrophils Synovial Lymphocytes Synov Monos/Macrophage Synovial Fluid Comment Lyme Disease IgG Ab (IFA) Lyme Disease IgM Ab Infectious Perry Assay Assessment & Plan (1) Septic arthritis Assessment and Plan: synovial fluid WBC suggestive of inflammatory not clearly septic, 89%PMNs patient not clinically improving since admission clinically in acute distress, knee only moderate effusion, no erythema crystals negative, no history of gout cx neg x 24 hours with negative crystals and no history, +leukocytosis, fever as outpatient, per Dr. Velasquez indicated for arthroscopic I&D as can not rule out infection as cause of knee effusion and pain NPO for washout 1230pm today per Dr. Velasquez, d/w patient in detail, verbalized understanding, and consents to procedure Status: Acute
[2018-04-06 11:02] LABS: BANDS 1 % (0-2); LYMPHOCYTE 8 % (20-40); MONOCYTE 11 % (0-10); NEUTROPHIL 80 % (50-75); TOTAL CELLS COUNTED 100
[2018-04-06 11:03] LABS: ANISOCYTOSIS MODERATE; OVALOCYTES SLIGHT; PLATELET ESTIMATE NORMAL (NORMAL)
[2018-04-06] MEDS ORDERED: EPINEPHrine 1:1000 Nasal Sol(30mL) ONE (12:10)
[2018-04-06 12:13] LABS: HEPATITIS B SURFACE AG Negative (NEGATIVE)
[2018-04-06 12:19] LABS: HEPATITIS A IGM NEGATIVE (NEGATIVE); HEPATITIS B CORE AB NEGATIVE (NEGATIVE)
[2018-04-06] MEDS ORDERED: Midazolam 2 MG/2 ML VIAL ONE (12:40)
[2018-04-06] MEDS ORDERED: Propofol 10 mg/ml Inj (20 ML) ONE (12:40)
[2018-04-06] MEDS ORDERED: Bacitracin 150,000 UNIT in Sodium Chloride 0.9% Irrig 3,000 ML IR SCH (13:15)
[2018-04-06 13:27] LABS: FLUID TYPE SYNOVIAL FLUID
[2018-04-06] MEDS ORDERED: HYDROmorphone 1 mg/ml ISec IVP PRN (13:45)
[2018-04-06] MEDS ORDERED: Oxycodone/Acetaminophen 5/325 mg Tab PO PRN (13:45)
--- NOTE | 2018-04-06 13:45 | PCM.SURG1 ---
Surgeon's Initial Post Op Note - Surgeon's Notes Surgeon: Haider Velasquez MD Mold Tooler: Rachel Diaz PA_C Type of Anesthesia: General LMA Anesthesia Administered By: Dr. Trujillo Pre-Operative Diagnosis: r/o Left knee septic arthritis Operative Findings: cloudy blood tinged fluid. no gross pus or sepsis Post-Operative Diagnosis: same Operation Performed: Left knee arthroscopic I&D, chondroplasty, synovectomy Specimen/Specimens Removed: fluid for cell count, crystals, cx x 3 Estimated Blood Loss: EBL {In ML}: 5 Blood Products Given: N/A Drains Used: Hemovac Post-Op Condition: Fair Date of Surgery/Procedure: 04/06/18 Time of Surgery/Procedure: 13:45
[2018-04-06] MEDS: HYDROmorphone 0.5 mg/0.5 ml ISec IVP PRN ×2 (14:00→14:52)
[2018-04-06 14:27] LABS: SF GROSS APPEARANCE CLOUDY (CLEAR)
[2018-04-06 14:31] LABS: SYNOVIAL FLUID MONO/MACROPHAGE 4 % (0-0)
[2018-04-06 14:41] LABS: HEPATITIS C ANTIBODY REACTIVE (NEGATIVE)
[2018-04-06] MEDS ORDERED: Potassium Chloride 20 mEq ER Tab PO ONE (15:30)
[2018-04-06] MEDS: Vancomycin 1 gm/NS 200 ml 1 GM/200 ML BAG IVPB SCH (22:02)
--- NOTE | 2018-04-07 01:48 | CON ---
DATE: 04/06/2018 CHIEF COMPLAINT: Left knee pain. HISTORY OF PRESENT ILLNESS: The patient is a 37-year-old female who presents to the ER with an acute left knee pain. She was febrile. Denies any trauma or fall. X-rays were negative for any fracture or dislocation. The patient underwent aspiration of the left knee. A cell count was suspicious for infection; however, the Gram stain was negative. ASSESSMENT AND PLAN: were negative at that point, I had a detailed discussion with the patient explaining the complex nature. I presented with the option of continued observation versus surgical irrigation and debridement. I presented risks and benefits of both options and after careful consideration, the patient opted to proceed with the option of irrigation and debridement in event to treat septic arthritis. I reviewed the risks and benefits which included bleeding, infection, neurovascular damage, continued pain, stiffness, among others. The patient fully understood the risks and benefits and opted to proceed. Lazaro Velasquez MD
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
[2018-04-07] MEDS: Sodium Chloride 0.9% 1,000 ML IV SCH ×4 (02:45→23:39)
[2018-04-07] MEDS: Piperacill/Tazo 3.375gm in Dex 3.375 GM/50 ML BAG IVPB SCH ×4 (03:28→22:08)
--- NOTE | 2018-04-07 06:51 | CP.PCM.PN ---
Addendum entered and electronically signed by Benjamin Quiros 04/07/18 19:53: Logistics Planner services used for interview of pt. Logistics Planner Perla Chambers. Original Note: <Benjamin Quiros - Last Filed: 04/07/18 19:41> Subjective - Date & Time of Evaluation Date of Evaluation: 04/07/18 Time of Evaluation: 13:05 - Subjective Subjective: PGY1 Resident note for Dr. Sky. Pt was seen and examined at bedside. No overnight events. Pt is lying in bed, comfortably, no acute distress. Pt states there is no more pain in Left knee. Pt denies chest pain, difficulty breathing, headaches, vomiting. Objective - Vital Signs/Intake and Output Vital Signs (last 24 hours): Temp Pulse Resp BP Pulse Ox 98.2 F 60 20 100/65 98 04/07/18 00:00 04/07/18 04:30 04/07/18 04:30 04/07/18 04:30 04/07/18 04:30 Intake and Output: 04/06/18 04/07/18 18:59 06:59 Intake Total 1200 1000 Output Total 25 Balance 1200 975 - Medications Medications: Current Medications Acetaminophen (Tylenol 325mg Tab) 650 mg PO Q6 PRN PRN Reason: Fever >100.4 F Docusate Sodium (Colace) 100 mg PO BID [facility] Last Admin: 04/06/18 17:44 Dose: 100 mg Hydromorphone HCl (Dilaudid) 0.5 mg IVP Q4H PRN PRN Reason: Pain, severe (8-10) Sodium Chloride (Sodium Chloride 0.9%) 1,000 mls @ 100 mls/hr IV .Q10H [facility] Last Admin: 04/07/18 06:15 Dose: 100 mls/hr Piperacillin Sod/Tazobactam Sod (Zosyn 3.375 Gm Iv Premix) 3.375 gm in 50 mls @ 100 mls/hr IVPB Q6H [facility] PRN Reason: Protocol Last Admin: 04/07/18 03:28 Dose: 100 mls/hr Vancomycin/Sodium Chloride (Vancomycin 1 Gm/Ns 200 Ml) 1 gm in 200 mls @ 133.333 mls/hr IVPB Q24H [facility] PRN Reason: Protocol Stop: 04/10/18 22:01 Last Admin: 04/06/18 22:02 Dose: 133.333 mls/hr Ketorolac Tromethamine (Toradol) 30 mg IVP Q6H [facility] Last Admin: 04/07/18 04:33 Dose: 30 mg Oxycodone/Acetaminophen (Percocet 5/325 Mg Tab) 1 tab PO Q4 PRN PRN Reason: Pain, moderate (4-7) Stop: 04/09/18 13:46 - Labs Labs: 04/06/18 07:49 04/06/18 07:49 PT 12.0 SECONDS (9.7-12.2) 04/05/18 18:39 INR 1.1 04/05/18 18:39 APTT 28 SECONDS (21-34) 04/05/18 18:39 - Constitutional Appears: Well, No Acute Distress - Head Exam Head Exam: ATRAUMATIC, NORMAL INSPECTION - Eye Exam Eye Exam: EOMI, Normal appearance - Respiratory Exam Respiratory Exam: Clear to Ausculation Bilateral, NORMAL BREATHING PATTERN. absent: Rales, Rhonchi, Wheezes - Cardiovascular Exam Cardiovascular Exam: REGULAR RHYTHM, +S1, +S2 - Extremities Exam Extremities Exam: absent: Calf Tenderness Additional comments: LLE wrapped up in dressing. Dressing clean, dry intact. No erythema present on leg. Sensation in take. Pedal pulses in tack RUE, LUE, RLE all normal ROM. Sensation in take. Pedal pulses in tack - Neurological Exam Neurological Exam: Alert, Awake, Oriented x3 - Psychiatric Exam Psychiatric exam: Normal Affect, Normal Mood - Skin Skin Exam: Dry, Normal Color, Warm Assessment and Plan - Assessment and Plan (Free Text) Assessment: Plan: 37 yo F with no PMHx presents with L knee pain and swelling. Assessment & Plan (1) Arthritis- septic vs. inflammatory Assessment and Plan: Afebrile, + leukocytosis 11.7, + bandemia 2 Left Knee xray: large suprapatellar joint effusion w/o demonstrated fracture or dislocation Hip/pelvis xray: no demonstrated fracture or dislocation. nonspecific metallic densities seen overlying the pelvis may be external to the patient. correlate clinically Left knee synovial fluid: * WBC 19474O * RBC 9844 H * Neutrophils 89H * Lymphocytes 3H * Lorain/macrophage 8H * Gram stain: many polymorphonuclear WBCs, no organisms seen ESR: 33H Lyme IgG Ab, IgM Ab- negative Infectious mono assay- negative Chlamydia/GC: f/u Blood cx: No growth 24hours, preliminary Urine Cx: multiple species, possible contamination Wound cx: f/u Orthopedic surgery consulted, Dr. Velasquez. Help appreciated -Took pt to OR for arthroscopic I&D -managing pain: Ketorolac 30mg IVP Q6H, hydromorphone0.5 mg IVP Q4H PRN severe pain; oxycodone/acetaminophen 5/325 1 tab PO PRN moderate pain /6 - Synovial fluids WBCs 11ks, OODb40a, Neutrophil 90, Lymphocytes 6.0, No growth on wound culture 24 hrs. Pending results, possible D/C Medications: * Zosyn 3.375g IV Q6h * Vanco 1gm IV Q24h * NS@100mls/hr * Tylenol 650mg PO Q6h prn for fever/pain Status: Acute (2) Hypokalemia Kdur 40mg PO once F/u K+ / - K+ w/ in normal range (3) Hep C reactive - Discussed w/ pt about results. Informed pt upon D/C need to do further testing to confirm this result. (4) Prophylactic measure Assessment and Plan: DVT: no SCDs due to LE infection/swelling; no chemical anticoagulation-preop GI: no indicated Status: Acute <Latisha Sky V - Last Filed: 04/08/18 22:44> Objective - Vital Signs/Intake and Output Vital Signs (last 24 hours): Temp Pulse Resp BP Pulse Ox 98.4 F 66 20 113/74 100 04/08/18 16:11 04/08/18 16:11 04/08/18 16:11 04/08/18 16:11 04/08/18 16:11 Intake and Output: 04/08/18 04/09/18 18:59 06:59 Intake Total 1000 Balance 1000 - Medications Medications: Current Medications Acetaminophen (Tylenol 325mg Tab) 650 mg PO Q6 PRN PRN Reason: Fever >100.4 F Docusate Sodium (Colace) 100 mg PO BID [facility] Last Admin: 04/08/18 17:22 Dose: 100 mg Hydromorphone HCl (Dilaudid) 0.5 mg IVP Q4H PRN PRN Reason: Pain, severe (8-10) Piperacillin Sod/Tazobactam Sod (Zosyn 3.375 Gm Iv Premix) 3.375 gm in 50 mls @ 100 mls/hr IVPB Q6H [facility] PRN Reason: Protocol Last Admin: 04/08/18 20:57 Dose: 100 mls/hr Vancomycin/Sodium Chloride (Vancomycin 1 Gm/Ns 200 Ml) 1 gm in 200 mls @ 133.333 mls/hr IVPB Q24H [facility] PRN Reason: Protocol Stop: 04/10/18 22:01 Last Admin: 04/08/18 22:10 Dose: 133.333 mls/hr Oxycodone/Acetaminophen (Percocet 5/325 Mg Tab) 1 tab PO Q4 PRN PRN Reason: Pain, moderate (4-7) Stop: 04/09/18 13:46 Last Admin: 04/08/18 20:55 Dose: 1 tab - Labs Labs: 04/08/18 06:26 04/08/18 06:26 PT 12.0 SECONDS (9.7-12.2) 04/05/18 18:39 INR 1.1 04/05/18 18:39 APTT 28 SECONDS (21-34) 04/05/18 18:39 Attending/Attestation - Attestation I have personally seen and examined this patient.: Yes I have fully participated in the care of the patient.: Yes I have reviewed all pertinent clinical information, including history, physical exam and plan: Yes Notes (Text): This is late computer entry for 04/07/18. Patient seen, examined and case discussed with day-time resident. Patient seen this afternoon and clinical program director provided by kit as noted by the resident in [place] language. Patient is post-operative day 1 from Arthoscopiic I&D. Patient denies flatus, denies bowel movement, reports pain is controlled. Sensation intact. We had a long discussion of her findings of hepatitis C reactive antibody. We advised her that she will need to follow-up in the clinic for further blood works to determine if she needs treatment or not for hepatitis C. She was also counselled on safe sex practices and understands that hepatitis if she does have can be transferred through body fluid/blood. Patient denies any recent blood transfusions, denies drug uses, and reports she has been tested for sexual transmitted diseases in the past. Discussed with ortho-PA, we are awaiting wound cultures from the OR to determine discharge planning. (1) Septic arthritis Left Knee Pain Assessment and Plan: * Orthopedic surgery consulted, Dr. Velasquez. Help appreciated * Chest xray (04/06/18): no active disease; EKG: NSR; As per Detsky's criteria, patient considered low intraoperative cardiac risk for noncardic procedure. Surgery and anesthesia to discuss risks and benefits prior to procedure respectively. * Preoperative/intraoperative/post operative per orthopedic surgery * Anticoagulation per orthopedic surgery * Operative Note (04/06/18): left knee arthroscopic I&D, chrondroplasty, synvectomy * Dilaudid 0.5mg IVP Q4H PRN severe pain * Percocet 5/325 1 tab PO Q4H PRN severe pain Intraoperative Cultures: * 04/06/18 #1 Wound Culture (prelim): no growth * 04/06/18 #2 Wound Culture (prelim): no growth * 04/06/18 #3 Wound Culture (prelim): no growth Intraoperative Left knee synovial fluid: * WBC 03400.0 * RBC 83799.0 * Neutrophils 90.0 * Lymphocytes 6 * Lorain/macrophage 4H * negative crystals * Gram stain: many polymorphonuclear WBCs, no organisms seen, no organisms seen * Criteria: Afebrile, + leukocytosis 11.7, + bandemia 2 * Left Knee xray (04/05/18): large suprapatellar joint effusion w/o demonstrated fracture or dislocation * Hip/pelvis xray (04/05/18): no demonstrated fracture or dislocation. nonspecific metallic densities seen overlying the pelvis may be external to the patient. correlate clinically * ESR: 33H * Lyme IgG Ab, IgM Ab- negative * Infectious mono assay- negative * Chlamydia/GC (04/05/18): f/u * Blood cx (04/05/18): negative * Urine Cx (04/05/18): contaminated Medications: * Zosyn 3.375g IV Q6h (active since 04/05/18) * Vancomycin 1gm IV Q24h (active since 04/05/18) * Tylenol 650mg PO Q6h prn for fever/pain Status: Acute (2) Transaminitis Assessment and Plan: * hepatitis C Reactive AB * monitor LFTS (3) Hepatitis C Reactive Antibody + Assessment and Plan: * Will need to f/u outpatient for further testing and if positive will need to seek treatment * Counselled about safe sex practices and that the virus if she has is exchanged through exposure to fluid (4) Prophylactic measure Assessment and Plan: * DVT: no SCDs due to LE infection/swelling; * no chemical anticoagulation prior to OR * GI: no indicated * Regular diet
[2018-04-07 07:08] LABS: BASO % 0.3 % (0.0-2.0); HEMOGLOBIN 12.1 g/dL (11.0-16.0); LYMPH # 0.7 K/uL (1.0-4.3); LYMPH % 6.3 % (20.0-40.0); MEAN CELL VOLUME 80.7 fL (81.0-99.0); MEAN CORPUSCULAR HEMOGLOBIN 26.8 pg (27.0-31.0); MEAN CORPUSCULAR HGB CONC 33.3 g/dL (33.0-37.0); MEAN PLATELET VOLUME 9.1 fL (7.2-11.7); MONO # 0.7 K/uL (0.0-0.8); MONO % 6.4 % (0.0-10.0); NEUT # 9.6 K/uL (1.8-7.0); PLATELET COUNT 236 K/uL (130-400); RED CELL DISTRIBUTION WIDTH 18.5 % (11.5-14.5)
[2018-04-07 07:49] LABS: ALB/GLOB RATIO 1.2 (1.0-2.1); ALBUMIN 3.4 g/dL (3.5-5.0); ALT/SGPT 86 U/L (9-52); AST/SGOT 74 U/L (14-36); BLOOD UREA NITROGEN 12 mg/dL (7-17); CALCIUM 8.8 mg/dl (8.6-10.4); GFR AFRICAN-AMERICAN > 60; GFR NON-AFRICAN AMERICAN > 60
[2018-04-07 08:25] LABS: FLUID CRYSTALS NEGATIVE (NEGATIVE)
--- NOTE | 2018-04-07 08:54 | CP.PCM.PN ---
Subjective - Date & Time of Evaluation Date of Evaluation: 04/07/18 Time of Evaluation: 08:49 - Subjective Subjective: Patient states she has no pain in her knee today. She says she feels much better after the surgery. Denies numbnss/tingling. Denies back pain, or pain in other extremities Objective - Vital Signs/Intake and Output Vital Signs (last 24 hours): Temp Pulse Resp BP Pulse Ox 97.8 F 68 20 97/60 L 99 04/07/18 08:18 04/07/18 08:18 04/07/18 08:18 04/07/18 08:18 04/07/18 08:18 Intake and Output: 04/07/18 04/07/18 06:59 18:59 Intake Total 1000 Output Total 25 Balance 975 - Medications Medications: Current Medications Acetaminophen (Tylenol 325mg Tab) 650 mg PO Q6 PRN PRN Reason: Fever >100.4 F Docusate Sodium (Colace) 100 mg PO BID [facility] Last Admin: 04/06/18 17:44 Dose: 100 mg Hydromorphone HCl (Dilaudid) 0.5 mg IVP Q4H PRN PRN Reason: Pain, severe (8-10) Sodium Chloride (Sodium Chloride 0.9%) 1,000 mls @ 100 mls/hr IV .Q10H [facility] Last Admin: 04/07/18 06:15 Dose: 100 mls/hr Piperacillin Sod/Tazobactam Sod (Zosyn 3.375 Gm Iv Premix) 3.375 gm in 50 mls @ 100 mls/hr IVPB Q6H [facility] PRN Reason: Protocol Last Admin: 04/07/18 03:28 Dose: 100 mls/hr Vancomycin/Sodium Chloride (Vancomycin 1 Gm/Ns 200 Ml) 1 gm in 200 mls @ 133.333 mls/hr IVPB Q24H [facility] PRN Reason: Protocol Stop: 04/10/18 22:01 Last Admin: 04/06/18 22:02 Dose: 133.333 mls/hr Ketorolac Tromethamine (Toradol) 30 mg IVP Q6H [facility] Last Admin: 04/07/18 04:33 Dose: 30 mg Oxycodone/Acetaminophen (Percocet 5/325 Mg Tab) 1 tab PO Q4 PRN PRN Reason: Pain, moderate (4-7) Stop: 04/09/18 13:46 - Labs Labs: 04/07/18 07:02 04/07/18 07:02 PT 12.0 SECONDS (9.7-12.2) 04/05/18 18:39 INR 1.1 04/05/18 18:39 APTT 28 SECONDS (21-34) 04/05/18 18:39 - Extremities Exam Additional comments: Left knee: 25cc overnight, 5cc in drain this am, removed No increase in joint effusion incisions intact scant drainage only from hemovac site patient now with painfree AROM of knee calves soft NT neg homans sensation intact Assessment and Plan (1) Septic arthritis Assessment & Plan: acute joint effusion, r/o septic arthritis vs reactive inflammatory synovitis ( hep C +)and effusion -intraop and ER cultures pending, prelim neg -no gross evidence of sepsis intraop -crystals negative from intraop specimen as well, fluid cell count intraop 11k WBC, 10K RBC -clinically significantly improved post op -d/w Dr. Velasquez, agrees with above -PT for OOB -d/c knee immobilizer -recommend f/u culture of synovial fluid prior to d/c Status: Acute
[2018-04-07 09:00] LABS: ANISOCYTOSIS SLIGHT; LYMPHOCYTE 2 % (20-40); MONOCYTE 2 % (0-10); NEUTROPHIL 96 % (50-75); PLATELET ESTIMATE NORMAL (NORMAL); TOTAL CELLS COUNTED 100
[2018-04-07] MEDS ORDERED: Pneumococcal 23-Valent Vaccine IM ONE (10:00)
[2018-04-07] MEDS: Vancomycin 1 gm/NS 200 ml 1 GM/200 ML BAG IVPB SCH (22:57)
[2018-04-08 01:16] VITALS: RESP 20
[2018-04-08] MEDS: Piperacill/Tazo 3.375gm in Dex 3.375 GM/50 ML BAG IVPB SCH ×4 (03:32→20:57)
[2018-04-08 06:17] LABS: GLUCOSE,SYNOVIAL FLUID <10 mg/dL
[2018-04-08 06:45] LABS: BASO % 0.2 % (0.0-2.0); EOS # 0.1 K/uL (0.0-0.7); EOS % 0.7 % (0.0-4.0); HEMOGLOBIN 11.3 g/dL (11.0-16.0); LYMPH # 1.2 K/uL (1.0-4.3); LYMPH % 16.9 % (20.0-40.0); MEAN CELL VOLUME 80.7 fL (81.0-99.0); MEAN CORPUSCULAR HEMOGLOBIN 26.5 pg (27.0-31.0); MEAN CORPUSCULAR HGB CONC 32.8 g/dL (33.0-37.0); MEAN PLATELET VOLUME 8.7 fL (7.2-11.7); MONO # 0.8 K/uL (0.0-0.8); MONO % 11.2 % (0.0-10.0); NEUT # 4.8 K/uL (1.8-7.0); NRBC % 0.1 % (0.0-2.0); RBC 4.28 Mil/uL (3.80-5.20); RED CELL DISTRIBUTION WIDTH 18.2 % (11.5-14.5); WHITE BLOOD COUNT 6.8 K/uL (4.8-10.8)
[2018-04-08 06:48] LABS: ALB/GLOB RATIO 1.1 (1.0-2.1); ALBUMIN 3.3 g/dL (3.5-5.0); ALT/SGPT 80 U/L (9-52); AST/SGOT 49 U/L (14-36); BLOOD UREA NITROGEN 10 mg/dL (7-17); CALCIUM 8.8 mg/dl (8.6-10.4); GFR AFRICAN-AMERICAN > 60; GFR NON-AFRICAN AMERICAN > 60
[2018-04-08] MEDS: Sodium Chloride 0.9% 1,000 ML IV SCH ×3 (07:49→19:29)
--- NOTE | 2018-04-08 12:19 | CP.PCM.PN ---
<Clifton Leos - Last Filed: 04/08/18 21:24> Subjective - Date & Time of Evaluation Date of Evaluation: 04/08/18 Time of Evaluation: 12:19 - Subjective Subjective: Progress Note for Hospitalist Service Patient seen and examined at bedside. Patient speaks [place]. Stacker Straightener [place] [id number] was used. She states that she has not had a bowel movement in a while. Patient otherwise states she is feeling well. She states that her left knee is not very painful. She denies chest pain, difficulty breathing, headaches, vomiting, nausea, abdominal pain, shortness of breath. Objective - Vital Signs/Intake and Output Vital Signs (last 24 hours): Temp Pulse Resp BP Pulse Ox 98.5 F 67 20 110/72 100 04/08/18 08:00 04/08/18 08:00 04/08/18 08:00 04/08/18 08:00 04/08/18 08:00 Intake and Output: 04/08/18 04/08/18 06:59 18:59 Intake Total 2330 Balance 2330 - Medications Medications: Current Medications Acetaminophen (Tylenol 325mg Tab) 650 mg PO Q6 PRN PRN Reason: Fever >100.4 F Docusate Sodium (Colace) 100 mg PO BID [facility] Last Admin: 04/08/18 10:16 Dose: 100 mg Hydromorphone HCl (Dilaudid) 0.5 mg IVP Q4H PRN PRN Reason: Pain, severe (8-10) Sodium Chloride (Sodium Chloride 0.9%) 1,000 mls @ 100 mls/hr IV .Q10H [facility] Last Admin: 04/08/18 07:51 Dose: 100 mls/hr Piperacillin Sod/Tazobactam Sod (Zosyn 3.375 Gm Iv Premix) 3.375 gm in 50 mls @ 100 mls/hr IVPB Q6H [facility] PRN Reason: Protocol Last Admin: 04/08/18 10:16 Dose: 100 mls/hr Vancomycin/Sodium Chloride (Vancomycin 1 Gm/Ns 200 Ml) 1 gm in 200 mls @ 133.333 mls/hr IVPB Q24H [facility] PRN Reason: Protocol Stop: 04/10/18 22:01 Last Admin: 04/07/18 22:57 Dose: 133.333 mls/hr Oxycodone/Acetaminophen (Percocet 5/325 Mg Tab) 1 tab PO Q4 PRN PRN Reason: Pain, moderate (4-7) Stop: 04/09/18 13:46 - Labs Labs: 04/08/18 06:26 04/08/18 06:26 PT 12.0 SECONDS (9.7-12.2) 04/05/18 18:39 INR 1.1 04/05/18 18:39 APTT 28 SECONDS (21-34) 04/05/18 18:39 - Constitutional Appears: Well, No Acute Distress - Head Exam Head Exam: ATRAUMATIC, NORMOCEPHALIC - Eye Exam Eye Exam: EOMI - ENT Exam ENT Exam: Mucous Membranes Moist - Respiratory Exam Respiratory Exam: Clear to Ausculation Bilateral. absent: Rales, Rhonchi, Wheezes - Cardiovascular Exam Cardiovascular Exam: REGULAR RHYTHM, +S1, +S2 - GI/Abdominal Exam GI & Abdominal Exam: Soft, Normal Bowel Sounds. absent: Distended, Firm, Guarding, Tenderness - Extremities Exam Extremities Exam: absent: Calf Tenderness Additional comments: left knee and lower extremity wrapped. Nonerythematous. Sensation intact. Pedal pulses intact. - Neurological Exam Neurological Exam: Alert, Awake, Oriented x3 - Psychiatric Exam Psychiatric exam: Normal Mood Assessment and Plan - Assessment and Plan (Free Text) Assessment: 37 year old female who presents for evaluation of left knee swelling and pain. Plan: Assessment and plan Arthritis- septic vs. inflammatory Afebrile, + leukocytosis 11.7, + bandemia 2 Left Knee xray: large suprapatellar joint effusion w/o demonstrated fracture or dislocation Hip/pelvis xray: no demonstrated fracture or dislocation. nonspecific metallic densities seen overlying the pelvis may be external to the patient. correlate clinically Left knee synovial fluid: * WBC 14602D * RBC 9844 H * Neutrophils 89H * Lymphocytes 3H * Harney/macrophage 8H * Gram stain: many polymorphonuclear WBCs, no organisms seen ESR: 33H Lyme IgG Ab, IgM Ab- negative Infectious mono assay- negative Chlamydia/GC: f/u Blood cx: No growth 24hours, preliminary Urine Cx: multiple species, possible contamination Wound cx: f/u Orthopedic surgery consulted, Dr. Velasquez. Help appreciated -Took pt to OR for arthroscopic I&D -managing pain: Ketorolac 30mg IVP Q6H, hydromorphone0.5 mg IVP Q4H PRN severe pain; oxycodone/acetaminophen 5/325 1 tab PO PRN moderate pain 7/6 - Synovial fluids WBCs 11ks, [id number], Neutrophil 90, Lymphocytes 6.0, No growth on wound culture 24 hrs. Pending results, possible D/C Medications: * Zosyn 3.375g IV Q6h * Vanco 1gm IV Q24h * NS@100mls/hr * Tylenol 650mg PO Q6h prn for fever/pain * Dilaudid 0.5mg IV Q4 * Percocet 1 tab PO Q4 Status: Acute Hypokalemia, resolved Kdur 40mg PO once F/u K+ / - K+ w/ in normal range 04/08 - K+ 4.0 Hep C reactive - Discussed w/ pt about results. Informed pt upon D/C need to do further testing to confirm this result. Prophylactic measure Assessment and Plan: DVT: no SCDs due to LE infection/swelling; no chemical anticoagulation-preop GI: no indicated Status: Acute Clifton Leos, PGY1 Case discussed with Dr. Sky. <Latisha Sky V - Last Filed: 04/08/18 22:54> Objective - Vital Signs/Intake and Output Vital Signs (last 24 hours): Temp Pulse Resp BP Pulse Ox 98.4 F 66 20 113/74 100 04/08/18 16:11 04/08/18 16:11 04/08/18 16:11 04/08/18 16:11 04/08/18 16:11 Intake and Output: 04/08/18 04/09/18 18:59 06:59 Intake Total 1000 1050 Balance 1000 1050 - Medications Medications: Current Medications Acetaminophen (Tylenol 325mg Tab) 650 mg PO Q6 PRN PRN Reason: Fever >100.4 F Docusate Sodium (Colace) 100 mg PO BID [facility] Last Admin: 04/08/18 17:22 Dose: 100 mg Hydromorphone HCl (Dilaudid) 0.5 mg IVP Q4H PRN PRN Reason: Pain, severe (8-10) Piperacillin Sod/Tazobactam Sod (Zosyn 3.375 Gm Iv Premix) 3.375 gm in 50 mls @ 100 mls/hr IVPB Q6H [facility] PRN Reason: Protocol Last Admin: 04/08/18 20:57 Dose: 100 mls/hr Vancomycin/Sodium Chloride (Vancomycin 1 Gm/Ns 200 Ml) 1 gm in 200 mls @ 133.333 mls/hr IVPB Q24H [facility] PRN Reason: Protocol Stop: 04/10/18 22:01 Last Admin: 04/08/18 22:10 Dose: 133.333 mls/hr Oxycodone/Acetaminophen (Percocet 5/325 Mg Tab) 1 tab PO Q4 PRN PRN Reason: Pain, moderate (4-7) Stop: 04/09/18 13:46 Last Admin: 04/08/18 20:55 Dose: 1 tab - Labs Labs: 04/08/18 06:26 04/08/18 06:26 PT 12.0 SECONDS (9.7-12.2) 04/05/18 18:39 INR 1.1 04/05/18 18:39 APTT 28 SECONDS (21-34) 04/05/18 18:39 Attending/Attestation - Attestation I have personally seen and examined this patient.: Yes I have fully participated in the care of the patient.: Yes I have reviewed all pertinent clinical information, including history, physical exam and plan: Yes Notes (Text): Patient seen, examined and case discussed with day-time resident. Patient seen with use of [employer] Coordinator as described. Patient reports she feels constipated and requests for laxative. patient given dose of Ducloax 5mg PO X1 and stool softners. Patient's intraoperative wound cultures remain prelim negative. Blood cultures remain negative. White count has resolved. Afebrile. Patient reported she had heartburn, given pepcid 20mg Po once. (1) Septic arthritis Left Knee Pain Assessment and Plan: * Orthopedic surgery consulted, Dr. Velasquez. Help appreciated * Chest xray (04/06/18): no active disease; EKG: NSR; As per Detsky's criteria, patient considered low intraoperative cardiac risk for noncardic procedure. Surgery and anesthesia to discuss risks and benefits prior to procedure respectively. * Preoperative/intraoperative/post operative per orthopedic surgery * Anticoagulation per orthopedic surgery * Operative Note (04/06/18): left knee arthroscopic I&D, chrondroplasty, synvectomy * Dilaudid 0.5mg IVP Q4H PRN severe pain * Percocet 5/325 1 tab PO Q4H PRN severe pain Intraoperative Cultures: * 04/06/18 #1 Wound Culture (prelim): no growth * 04/06/18 #2 Wound Culture (prelim): no growth * 04/06/18 #3 Wound Culture (prelim): no growth Intraoperative Left knee synovial fluid: * WBC 26570.0 * RBC 66208.0 * Neutrophils 90.0 * Lymphocytes 6 * Harney/macrophage 4H * negative crystals * Gram stain: many polymorphonuclear WBCs, no organisms seen, no organisms seen * Criteria: Afebrile, + leukocytosis 11.7, + bandemia 2 * Left Knee xray (04/05/18): large suprapatellar joint effusion w/o demonstrated fracture or dislocation * Hip/pelvis xray (04/05/18): no demonstrated fracture or dislocation. nonspecific metallic densities seen overlying the pelvis may be external to the patient. correlate clinically * ESR: 33H * Lyme IgG Ab, IgM Ab- negative * Infectious mono assay- negative * Chlamydia/GC (04/05/18): f/u * Blood cx (04/05/18): negative * Urine Cx (04/05/18): contaminated Medications: * Zosyn 3.375g IV Q6h (active since 04/05/18) * Vancomycin 1gm IV Q24h (active since 04/05/18) * Will hold; check random vancomycin in the morning * Tylenol 650mg PO Q6h prn for fever/pain Status: Acute (2) Transaminitis Assessment and Plan: * hepatitis C Reactive AB-->see 3# * monitor LFTS (3) Hepatitis C Reactive Antibody + Assessment and Plan: * Will need to f/u outpatient for further testing and if positive will need to seek treatment * Counselled about safe sex practices and that the virus if she has is exchanged through exposure to fluid (body/blood) (4) Constipation Assessment and Plan: * start Colace 100mg PO BID * Ducolax 5mg PO X1 (5) Prophylactic measure Assessment and Plan: * DVT: no SCDs due to LE infection/swelling; * no chemical anticoagulation prior to OR * GI: no indicated * Regular diet
[2018-04-08] MEDS ORDERED: Bisacodyl 5mg EC Tab PO ONE (17:00)
[2018-04-08] MEDS: Vancomycin 1 gm/NS 200 ml 1 GM/200 ML BAG IVPB SCH (22:10)
[2018-04-09] MEDS: Piperacill/Tazo 3.375gm in Dex 3.375 GM/50 ML BAG IVPB SCH ×4 (03:06→21:17)
[2018-04-09 08:11] LABS: BASO % 0.6 % (0.0-2.0); EOS # 0.1 K/uL (0.0-0.7); HEMOGLOBIN 11.9 g/dL (11.0-16.0); LYMPH # 1.3 K/uL (1.0-4.3); LYMPH % 21.8 % (20.0-40.0); MEAN CELL VOLUME 80.4 fL (81.0-99.0); MEAN CORPUSCULAR HEMOGLOBIN 26.6 pg (27.0-31.0); MEAN CORPUSCULAR HGB CONC 33.1 g/dL (33.0-37.0); MEAN PLATELET VOLUME 8.3 fL (7.2-11.7); MONO # 0.8 K/uL (0.0-0.8); MONO % 13.5 % (0.0-10.0); NEUT # 3.8 K/uL (1.8-7.0); NEUT % 63.1 % (50.0-75.0); RBC 4.48 Mil/uL (3.80-5.20); RED CELL DISTRIBUTION WIDTH 18.1 % (11.5-14.5)
[2018-04-09 08:23] LABS: ALB/GLOB RATIO 1.2 (1.0-2.1); ALBUMIN 3.7 g/dL (3.5-5.0); ALT/SGPT 70 U/L (9-52); AST/SGOT 43 U/L (14-36); BLOOD UREA NITROGEN 8 mg/dL (7-17); GFR AFRICAN-AMERICAN > 60; GFR NON-AFRICAN AMERICAN > 60
--- NOTE | 2018-04-09 09:01 | CP.PCM.PN ---
Subjective - Date & Time of Evaluation Date of Evaluation: 04/09/18 Time of Evaluation: 08:50 - Subjective Subjective: Medical Attending Note: Indemand Pricing Analyst: [id number] Perla Therese Patient seen and examined at bedside. Patient denies headache, denies chest pain , denies shortness of breathe, reports she has a bowel movement yesterday, denies abdominal pain, denies hip pain, denies knee pains, denies numbness. patient had read up on hepatitis C on her computer. I explained to her her screening test was positive but she will need additional blood works to confirm hepatitis C and then treatment if needed. Patient does not have a primary care doctor I did refer to her the two clinics associated with the hospital. We are awaiting final wound cultures from the OR. They are prelim status. Objective - Vital Signs/Intake and Output Vital Signs (last 24 hours): Temp Pulse Resp BP Pulse Ox 98.2 F 65 20 105/66 100 04/09/18 08:00 04/09/18 08:00 04/09/18 08:00 04/09/18 08:00 04/09/18 08:00 Intake and Output: 04/09/18 04/09/18 06:59 18:59 Intake Total 1100 Balance 1100 - Medications Medications: Current Medications Acetaminophen (Tylenol 325mg Tab) 650 mg PO Q6 PRN PRN Reason: Fever >100.4 F Docusate Sodium (Colace) 100 mg PO BID [facility] Last Admin: 04/08/18 17:22 Dose: 100 mg Famotidine (Pepcid) 20 mg PO DAILY [facility] Hydromorphone HCl (Dilaudid) 0.5 mg IVP Q4H PRN PRN Reason: Pain, severe (8-10) Piperacillin Sod/Tazobactam Sod (Zosyn 3.375 Gm Iv Premix) 3.375 gm in 50 mls @ 100 mls/hr IVPB Q6H [facility] PRN Reason: Protocol Last Admin: 04/09/18 03:06 Dose: 100 mls/hr Vancomycin/Sodium Chloride (Vancomycin 1 Gm/Ns 200 Ml) 1 gm in 200 mls @ 133.333 mls/hr IVPB Q24H [facility] PRN Reason: Protocol Stop: 04/10/18 22:01 Last Admin: 04/08/18 22:10 Dose: 133.333 mls/hr Oxycodone/Acetaminophen (Percocet 5/325 Mg Tab) 1 tab PO Q4 PRN PRN Reason: Pain, moderate (4-7) Stop: 04/09/18 13:46 Last Admin: 04/08/18 20:55 Dose: 1 tab - Labs Labs: 04/09/18 07:53 04/09/18 07:53 PT 12.0 SECONDS (9.7-12.2) 04/05/18 18:39 INR 1.1 04/05/18 18:39 APTT 28 SECONDS (21-34) 04/05/18 18:39 - Constitutional Appears: Non-toxic, No Acute Distress - Head Exam Head Exam: NORMAL INSPECTION - Eye Exam Eye Exam: EOMI - ENT Exam ENT Exam: Mucous Membranes Moist - Neck Exam Neck Exam: absent: Meningismus - Respiratory Exam Respiratory Exam: Clear to Ausculation Bilateral, NORMAL BREATHING PATTERN. absent: Rales, Rhonchi, Wheezes - Cardiovascular Exam Cardiovascular Exam: REGULAR RHYTHM, +S1, +S2. absent: JVD - GI/Abdominal Exam GI & Abdominal Exam: Soft, Normal Bowel Sounds. absent: Distended, Firm, Guarding, Rigid, Tenderness, Rebound - Extremities Exam Extremities Exam: absent: Pedal Edema, Tenderness - Neurological Exam Neurological Exam: Alert, Awake, Oriented x3 - Psychiatric Exam Psychiatric exam: Normal Affect, Normal Mood - Skin Skin Exam: Dry, Intact, Normal Color, Warm Additional comments: left knee: riki bandaged: clean/dry/intact Assessment and Plan - Assessment and Plan (Free Text) Assessment: Patient seen and examined. patient is afebrile, no white count. Random vancomycin level is normal. Awaiting wound cultures from 04/06/18 for finalization. patient has had a bowel movement. Patient is possible discharge pending finalization of knee wound cultures. Vancomycin resumed. (1) Septic arthritis Left Knee Pain Assessment and Plan: * Orthopedic surgery consulted, Dr. Velasquez. Help appreciated * Chest xray (04/06/18): no active disease; EKG: NSR; As per Detsky's criteria, patient considered low intraoperative cardiac risk for noncardic procedure. Surgery and anesthesia to discuss risks and benefits prior to procedure respectively. * Preoperative/intraoperative/post operative per orthopedic surgery * Anticoagulation per orthopedic surgery * Operative Note (04/06/18): left knee arthroscopic I&D, chrondroplasty, synvectomy * Dilaudid 0.5mg IVP Q4H PRN severe pain * Percocet 5/325 1 tab PO Q4H PRN severe pain Intraoperative Cultures: * 04/06/18 #1 Wound Culture (prelim): no growth * 04/06/18 #2 Wound Culture (prelim): no growth * 04/06/18 #3 Wound Culture (prelim): no growth Intraoperative Left knee synovial fluid: * WBC 90695.0 * RBC 60028.0 * Neutrophils 90.0 * Lymphocytes 6 * Walsh/macrophage 4H * negative crystals * Gram stain: many polymorphonuclear WBCs, no organisms seen, no organisms seen * Criteria: Afebrile, + leukocytosis 11.7, + bandemia 2 * Left Knee xray (04/05/18): large suprapatellar joint effusion w/o demonstrated fracture or dislocation * Hip/pelvis xray (04/05/18): no demonstrated fracture or dislocation. nonspecific metallic densities seen overlying the pelvis may be external to the patient. correlate clinically * ESR: 33H * Lyme IgG Ab, IgM Ab- negative * Infectious mono assay- negative * Chlamydia/GC (04/05/18): f/u * Blood cx (04/05/18): negative * Urine Cx (04/05/18): contaminated Medications: * Zosyn 3.375g IV Q6h (active since 04/05/18) * Vancomycin 1gm IV Q24h (active since 04/05/18) * Random vancomycin 9.2 * Will resume Vancomycin today * Tylenol 650mg PO Q6h prn for fever/pain Status: Acute (2) Transaminitis Assessment and Plan: * hepatitis C Reactive AB-->see 3# * monitor LFTS (3) Hepatitis C Reactive Antibody + Assessment and Plan: * Will need to f/u outpatient for further testing and if positive will need to seek treatment * Counselled about safe sex practices and that the virus if she has is exchanged through exposure to fluid (body/blood) (4) Constipation-->resolved Assessment and Plan: * c/w Colace 100mg PO BID * Ducolax 5mg PO X1 on 04/08-->had bowel movement (5) Prophylactic measure Assessment and Plan: * DVT: no SCDs due to LE infection/swelling; * no chemical anticoagulation prior to OR * GI: no indicated * Regular diet Disposition: patient is awaiting finalization of wound cultures from the OR from 04/06/18. Patient will need referral to the [facility] at either [place] or [place] for workup for hepatitis C given reactive antibody.
[2018-04-09] MEDS: Vancomycin 1 gm/NS 200 ml 1 GM/200 ML BAG IVPB SCH (10:50)
[2018-04-10] MEDS: Piperacill/Tazo 3.375gm in Dex 3.375 GM/50 ML BAG IVPB SCH ×2 (03:48→08:52)
[2018-04-10 06:51] LABS: BASO % 0.5 % (0.0-2.0); EOS # 0.1 K/uL (0.0-0.7); EOS % 1.4 % (0.0-4.0); HEMOGLOBIN 12.3 g/dL (11.0-16.0); LYMPH # 1.6 K/uL (1.0-4.3); LYMPH % 23.8 % (20.0-40.0); MEAN CELL VOLUME 81.3 fL (81.0-99.0); MEAN CORPUSCULAR HEMOGLOBIN 26.8 pg (27.0-31.0); MEAN CORPUSCULAR HGB CONC 32.9 g/dL (33.0-37.0); MEAN PLATELET VOLUME 8.5 fL (7.2-11.7); MONO # 0.9 K/uL (0.0-0.8); MONO % 14.2 % (0.0-10.0); NEUT % 60.1 % (50.0-75.0); NRBC % 0.1 % (0.0-2.0); RBC 4.58 Mil/uL (3.80-5.20); RED CELL DISTRIBUTION WIDTH 18.2 % (11.5-14.5); WHITE BLOOD COUNT 6.6 K/uL (4.8-10.8)
[2018-04-10 07:21] LABS: ALB/GLOB RATIO 1.2 (1.0-2.1); ALBUMIN 3.9 g/dL (3.5-5.0); ALT/SGPT 63 U/L (9-52); AST/SGOT 45 U/L (14-36); BLOOD UREA NITROGEN 8 mg/dL (7-17); GFR AFRICAN-AMERICAN > 60; GFR NON-AFRICAN AMERICAN > 60
--- NOTE | 2018-04-10 09:39 | CP.PCM.PN ---
Subjective - Date & Time of Evaluation Date of Evaluation: 04/10/18 Time of Evaluation: 09:39 Objective - Vital Signs/Intake and Output Vital Signs (last 24 hours): Temp Pulse Resp BP Pulse Ox 98.1 F 68 20 114/79 100 04/10/18 08:56 04/10/18 08:56 04/10/18 08:56 04/10/18 08:56 04/10/18 08:56 Intake and Output: 04/10/18 04/10/18 06:59 18:59 Intake Total 550 Balance 550 - Medications Medications: Current Medications Acetaminophen (Tylenol 325mg Tab) 650 mg PO Q6 PRN PRN Reason: Fever >100.4 F Docusate Sodium (Colace) 100 mg PO BID [facility] Last Admin: 04/10/18 08:52 Dose: 100 mg Famotidine (Pepcid) 20 mg PO DAILY [facility] Last Admin: 04/10/18 08:52 Dose: 20 mg Hydromorphone HCl (Dilaudid) 0.5 mg IVP Q4H PRN PRN Reason: Pain, severe (8-10) Piperacillin Sod/Tazobactam Sod (Zosyn 3.375 Gm Iv Premix) 3.375 gm in 50 mls @ 100 mls/hr IVPB Q6H [facility] PRN Reason: Protocol Last Admin: 04/10/18 08:52 Dose: 100 mls/hr Vancomycin/Sodium Chloride (Vancomycin 1 Gm/Ns 200 Ml) 1 gm in 200 mls @ 133 mls/hr IVPB Q24H [facility] PRN Reason: Protocol Stop: 04/14/18 10:01 Last Admin: 04/09/18 10:50 Dose: 133 mls/hr - Labs Labs: 04/10/18 06:32 04/10/18 06:32 PT 12.0 SECONDS (9.7-12.2) 04/05/18 18:39 INR 1.1 04/05/18 18:39 APTT 28 SECONDS (21-34) 04/05/18 18:39
[2018-04-10] MEDS: Vancomycin 1 gm/NS 200 ml 1 GM/200 ML BAG IVPB SCH (11:37)
--- NOTE | 2018-04-10 14:20 | CP.PCM.DIS ---
Provider - Provider Date of Admission: 04/05/18 16:40 Attending physician: Figueroa Mora MD Consults: Dr. Velasquez, orthopedics. Time Spent in preparation of Discharge (in minutes): 45 Diagnosis - Discharge Diagnosis (1) Inflammatory arthritis Status: Acute (2) Hepatitis C antibody test positive Status: Acute Hospital Course - Lab Results Lab Results: Micro Results 04/06/18 15:47 Other: Please Indicate Gram Stain - Final 04/06/18 15:47 Other: Please Indicate Wound Culture - Final No growth. 04/06/18 15:47 Other: Please Indicate Gram Stain - Final 04/06/18 15:47 Other: Please Indicate Wound Culture - Final No growth. 04/06/18 15:47 Knee - Left Gram Stain - Final 04/06/18 15:47 Knee - Left Wound Culture - Final No growth. 04/05/18 12:30 Blood Blood Culture - Preliminary NO GROWTH AFTER 4 DAYS 04/05/18 13:00 Blood Blood Culture - Preliminary NO GROWTH AFTER 4 DAYS 04/05/18 11:03 Synovial Fluid Gram Stain - Final 04/05/18 11:03 Synovial Fluid Body Fluid Culture - Final No growth. 04/05/18 13:10 Urine Urine Culture - Final <10,000 CFU/ML. MULTIPLE SPECIES. PROBABLE CONTAMINATION. 04/05/18 11:03 Joint Gram Stain - Final Most Recent Lab Values WBC 6.6 K/uL (4.8-10.8) 04/10/18 06:32 RBC 4.58 Mil/uL (3.80-5.20) 04/10/18 06:32 Hgb 12.3 g/dL (11.0-16.0) 04/10/18 06:32 Hct 37.2 % (34.0-47.0) 04/10/18 06:32 MCV 81.3 fL (81.0-99.0) 04/10/18 06:32 MCH 26.8 pg (27.0-31.0) L 04/10/18 06:32 MCHC 32.9 g/dL (33.0-37.0) L 04/10/18 06:32 RDW 18.2 % (11.5-14.5) H 04/10/18 06:32 Plt Count 307 K/uL (130-400) 04/10/18 06:32 MPV 8.5 fL (7.2-11.7) 04/10/18 06:32 Neut % (Auto) 60.1 % (50.0-75.0) 04/10/18 06:32 Lymph % (Auto) 23.8 % (20.0-40.0) 04/10/18 06:32 [place] % (Auto) 14.2 % (0.0-10.0) H 04/10/18 06:32 Eos % (Auto) 1.4 % (0.0-4.0) 04/10/18 06:32 Baso % (Auto) 0.5 % (0.0-2.0) 04/10/18 06:32 Neut # (Auto) 4.0 K/uL (1.8-7.0) 04/10/18 06:32 Lymph # (Auto) 1.6 K/uL (1.0-4.3) 04/10/18 06:32 [place] # (Auto) 0.9 K/uL (0.0-0.8) H 04/10/18 06:32 Eos # (Auto) 0.1 K/uL (0.0-0.7) 04/10/18 06:32 Baso # (Auto) 0.0 K/uL (0.0-0.2) 04/10/18 06:32 Neutrophils % (Manual) 96 % (50-75) H 04/07/18 07:02 Band Neutrophils % 1 % (0-2) 04/06/18 07:49 Lymphocytes % (Manual) 2 % (20-40) L 04/07/18 07:02 Reactive Lymphs % 1 % (0-0) H 04/05/18 13:10 Monocytes % (Manual) 2 % (0-10) 04/07/18 07:02 Platelet Estimate Normal (NORMAL) 04/07/18 07:02 Anisocytosis (manual) Slight 04/07/18 07:02 Ovalocytes Slight 04/06/18 07:49 ESR 33 mm/hr (0-20) H 04/05/18 13:10 PT 12.0 SECONDS (9.7-12.2) 04/05/18 18:39 INR 1.1 04/05/18 18:39 APTT 28 SECONDS (21-34) 04/05/18 18:39 Sodium 144 mmol/L (132-148) 04/10/18 06:32 Potassium 4.0 mmol/L (3.6-5.2) 04/10/18 06:32 Chloride 104 mmol/L (98-107) 04/10/18 06:32 Carbon Dioxide 29 mmol/L (22-30) 04/10/18 06:32 Anion Gap 14 (10-20) 04/10/18 06:32 BUN 8 mg/dL (7-17) 04/10/18 06:32 Creatinine 0.8 mg/dL (0.7-1.2) 04/10/18 06:32 Est GFR ( Amer) > 60 04/10/18 06:32 Est GFR (Non-Af Amer) > 60 04/10/18 06:32 Random Glucose 94 mg/dL (65-105) 04/10/18 06:32 Uric Acid 3.0 mg/dL (2.2-7.5) 04/06/18 07:49 Calcium 9.0 mg/dl (8.6-10.4) 04/10/18 06:32 Phosphorus 4.8 mg/dL (2.5-4.5) H 04/10/18 06:32 Magnesium 2.2 mg/dL (1.6-2.3) 04/10/18 06:32 Total Bilirubin 0.4 mg/dL (0.2-1.3) 04/10/18 06:32 AST 45 U/L (14-36) H 04/10/18 06:32 ALT 63 U/L (9-52) H 04/10/18 06:32 Alkaline Phosphatase 56 U/L (38-126) 04/10/18 06:32 Total Protein 7.2 g/dL (6.3-8.3) 04/10/18 06:32 Albumin 3.9 g/dL (3.5-5.0) 04/10/18 06:32 Globulin 3.3 gm/dL (2.2-3.9) 04/10/18 06:32 Albumin/Globulin Ratio 1.2 (1.0-2.1) 04/10/18 06:32 Urine Color Yellow (YELLOW) 04/05/18 13:10 Urine Clarity Hazy (Clear) 04/05/18 13:10 Urine pH 5.0 (5.0-8.0) 04/05/18 13:10 Ur Specific [place] 1.025 (1.003-1.030) 04/05/18 13:10 Urine Protein Negative mg/dL (NEGATIVE) 04/05/18 13:10 Urine Glucose (UA) Normal mg/dL (Normal) 04/05/18 13:10 Urine Ketones Negative mg/dL (NEGATIVE) 04/05/18 13:10 Urine Blood Negative (NEGATIVE) 04/05/18 13:10 Urine Nitrate Negative (NEGATIVE) 04/05/18 13:10 Urine Bilirubin Negative (NEGATIVE) 04/05/18 13:10 Urine Urobilinogen Normal mg/dL (0.2-1.0) 04/05/18 13:10 Ur Leukocyte Esterase Neg [place]/uL (Negative) 04/05/18 13:10 Urine WBC (Auto) 2 /hpf (0-5) 04/05/18 13:10 Urine RBC (Auto) < 1 /hpf (0-3) 04/05/18 13:10 Ur Squamous Epith Cells 12 /hpf (0-5) H 04/05/18 13:10 Calcium Oxalate Crystal Occ /hpf (<OCC) H 04/05/18 13:10 Hyaline Casts 0-2 /lpf (0-2) 04/05/18 13:10 Urine HCG, Qual Negative (NEGATIVE) 04/05/18 13:10 Fluid Type Synovial fluid 04/06/18 13:25 Fluid Crystals Negative (NEGATIVE) 04/06/18 17:25 Synovial WBC 37341.0 /mm3 (0.0-150.0) H 04/06/18 13:25 Synovial RBC 13428.0 /mm3 (0.0-0.0) H 04/06/18 13:25 Synovial Neutrophils 90.0 % (0-0) H 04/06/18 13:25 Synovial Lymphocytes 6.0 % (0-0) H 04/06/18 13:25 Synov Monos/Macrophage 4 % (0-0) H 04/06/18 13:25 Synovial Glucose <10 mg/dL L 04/05/18 15:56 Synovial Fluid Comment TEST NOT PERFORMED 04/06/18 13:25 Random Vancomycin 9.2 ug/mL 04/09/18 07:53 Lyme Disease IgG Ab (IFA) Negative (NEGATIVE) 04/05/18 Unknown Lyme Disease IgM Ab Negative (NEGATIVE) 04/05/18 Unknown C.trachomatis RNA (TMA) Not detected (Not Detected) 04/05/18 13:10 Hepatitis A IgM Ab Negative (NEGATIVE) 04/06/18 11:13 Hep Bs Antigen Negative (NEGATIVE) 04/06/18 11:13 Hep B Core IgM Ab Negative (NEGATIVE) 04/06/18 11:13 Hepatitis C Antibody Reactive (NEGATIVE) 04/06/18 11:13 HIV 1&2 Antibody Screen Negative (NEGATIVE) 04/06/18 11:13 Infectious [place] Assay Negative (NEGATIVE) 04/05/18 13:10 N.gonorrhoeae RNA (TMA) Not detected (Not Detected) 04/05/18 13:10 - Hospital Course Hospital Course: On admission: 04/05/18 HPI: Patient is a 37 year Iranian speaking female with no past medical history who presents to the ED with complaints of left knee pain and swelling. The patient [place] the [place] and shortly after, started to right hip , thigh and knee numbness, as well as lower right back pain on Tuesday. The numbness improved and then she developed left knee pain and swelling. She took ibuprofen and used voltaren gel on her knee which improved her symptoms. She says that without ibuprofen and voltaren gel, she was not able to walk due to the swelling and pain. On Tuesday at 3am, the right hip and thigh numbness returned more intense than before, which is what brought her to the ER. She states she had fevers, weakness, dizziness, nausea, and lower right back pain on Tuesday; these symptoms have since resolved. She currently complains of left knee pain and swelling. The patient denies a history of trauma, STIs, and drug use. Patient currently denies chest pain, palpitations, shortness of breath, nausea, vomiting, fevers, dysuria, diarrhea/constipation, headaches, dizziness, numbness, and tingling. Hospital course: Patient was admitted for evaluation and treatment of L knee pain (inflammatory vs. septic arthritis). A Left knee XRay was obtained. Patient also complained of hip pain and had an XRay of the hip and pelvis. L knee XRay: Large suprapatellar joint effusion without demonstrated fracture or dislocation. (Please see full report) Hip/Pelvis XRay: No demonstrated fracture or dislocation. Nonspecific metallic densities seen overlying the pelvis may be external to the patient. Correlate clinically. (Please see full report) Left knee synovial fluid was obtained and tested. Results: Fluid crystals: negative WBC 02026.0 RBC 9844.0 Neutrophils 89 Lymphocytes 3 Macrophages 8 Patient was tested for Lyme Disease, mononucleosis, Chlamydia and gonorrhea which resulted negative. Patient was placed on antibiotics during her hospitalization: Zosyn 3.375 Q6 H and Vancomycin 1gm Q 24H. Patient went for L knee arthroscopic I&D, chrondroplasty, and synvectomy with vickey Leal, on 04/05/18. Patient tolerated the procedure well. Final results of intra-operative cultures were negative. Patient was also found to have elevated liver enzymes. A hepatitis panel was done and patient was found to be Hepatitis C reactive. Patient is stable for discharge. No new medications are prescribed. Patient is to follow up with [facility] or [facility] within 1 week for coordination of care and further work up of Hepatitis C reactivity. Patient was counselled on safe sex practices. Patient is to follow up with Dr. Velasquez within one week and for suture removal within 2 weeks. If symptoms recur or worsen, patient understands to go to nearest Emergency Room. This is a brief summary of hospital events. For a full record contact Medical Records. Discharge Exam - Head Exam Head Exam: ATRAUMATIC, NORMAL INSPECTION, NORMOCEPHALIC - Eye Exam Eye Exam: EOMI, Normal appearance - ENT Exam ENT Exam: Mucous Membranes Moist - Respiratory Exam Respiratory Exam: UNREMARKABLE. absent: Rales, Rhonchi, Wheezes - Cardiovascular Exam Cardiovascular Exam: REGULAR RHYTHM, +S1, +S2 - GI/Abdominal Exam GI & Abdominal Exam: Normal Bowel Sounds, Soft. absent: Tenderness - Extremities Exam Additional comments: L Knee with [address], one to lateral aspect and medial aspect each; there is mild tenderness to palpation to lateral aspect of knee; Full ROM; no edema noted. RLE has full ROM, no edema, non-tender to palpation. - Neurological Exam Neurological exam: Alert, Oriented x3 - Psychiatric Exam Psychiatric exam: Normal Affect - Skin Skin Exam: Dry, Intact, Warm Discharge Plan - Follow Up Plan Condition: STABLE Disposition: HOME/ ROUTINE Additional Instructions: Patient is to be discharged home per Dr. Figueroa Mora. Patient is to follow up with her primary care physician within one week of discharge. If patient does not have a primary care physician, patient can call and schedule an appointment with the [facility] , located in [facility] [place] [facility]. Please call and schedule an appointment for coordination of care and further work-up for Hepatitis C reactivity. Hepatitis C is a virus spread by contact with blood and bodily fluid. Patient must engage in safe sex using a barrier protection and restrain from intravenous drug use. Patient is to follow up with Dr. Velasquez (Ortho) within one week of discharge for follow up and suture removal. - Please call and schedule an appointment. . Patient prescribed no new medications upon discharge. If patient experiences any new or worsening symptoms, please go to the nearest Emergency Room. Referrals: [facility] at [facility] [Outside] Lazaro Velasquez MD [Staff Provider] -
[2018-04-10 16:08] VITALS: BP 122/74; PULSE 54; TEMP 98.3; O2SAT 99
--- NOTE | 2018-04-11 16:57 | CARD ---
APPROVED REPORT Date of service: 04/05/2018 EKG Measurement Heart [id number] <Conclusion> Normal sinus rhythm Rightward axis Borderline ECG
== END 2018-04-10 17:00 | disposition home or self-care (01) | DRG 489 ==
LOC: C.ER 11:20 → C.9E 16:40 → C.3T 19:03
PROVIDERS: ADMIT Family Medicine; ATTEND Family Medicine
PROC: 0SND4ZZ Release Left Knee Joint, Percutaneous Endoscopic Approach (ICD-10-PCS; 2018-04-06)
PROC: 0SUU09Z Supplement Left Knee Joint, Femoral Surface with Liner, Open Approach (ICD-10-PCS; 2018-04-06)
PROC: 0SUD09C Supplement Left Knee Joint with Liner, Patellar Surface, Open Approach (ICD-10-PCS; 2018-04-06)
PROC: 0S9D3ZX Drainage of Left Knee Joint, Percutaneous Approach, Diagnostic (ICD-10-PCS; 2018-04-06)
PROC: 0SBD4ZZ Excision of Left Knee Joint, Percutaneous Endoscopic Approach (ICD-10-PCS; principal; 2018-04-06 11:45)
DX: M06.4 Inflammatory polyarthropathy (principal); M25.462 Effusion, left knee; M65.862 Other synovitis and tenosynovitis, left lower leg; M22.42 Chondromalacia patellae, left knee; M23.242 Derangement of anterior horn of lateral meniscus due to old tear or injury, left knee; M23.8X2 Other internal derangements of left knee; M94.262 Chondromalacia, left knee; D72.825 Bandemia; K59.00 Constipation, unspecified